=== PATIENT | female | born 1985 | race Caucasian/White ===

== ENCOUNTER 2020-02-25 20:22 | Emergency (ER) | payer OTHER, SELFPAY ==
[2020-02-25 20:23] VITALS: BP 124/78; PULSE 67; RESP 14; TEMP 36.5; O2SAT 99; BMI 19.7
--- NOTE | 2020-02-25 21:10 | HMH.EDUTC ---
[facility] [place] Clinical Impression: Exposure to COVID-19 virus Disposition: Home, Self-Care Condition on Discharge: Good Instructions: Preventing the Spread of Coronavirus Discharge Instructions, DI for COVID-19 (Suspected or Confirmed ) Additional Instructions: Drink plenty of fluids. Take tylenol for pain or fever. Return if you begin to have difficulty breathing. Follow up with your regular doctor. GO TO THE ER FOR ANY WORSENING SYMPTOMS Referrals: Ferdinand Bran MD [Primary Care Provider] - Time of Disposition: 21:11 Medical Decision Making - Medical Records Medical records reviewed: No: I reviewed the patient's medical records. - Da Inquiry Pt receiving controlled substance: No Vital Signs: 02/25/20 20:23 Temperature 97.7 F Temperature Source Oral Pulse Rate [Right] 67 Respiratory Rate 14 Blood Pressure [Right Arm] 124/78 Blood Pressure Mean [Right Arm] 93 02 Sat by Pulse Oximetry 99 Orders (Tests/Meds): ORDERS Category Date Time Status Covid-19 Nasal PCR Sendout P&C Routine Lab 02/25/20 20:26 Ordered [facility] [place] - General Stated complaint: covid test Time Seen by Provider: 02/25/20 21:10 Description of Symptoms (Recalled from Triage Doc. by RN): pt request COVID test pt has no symptoms HEENT Symptoms (Recalled from RN notes): No Resp Symptoms (Recalled from RN notes): No Skin Symptoms (Recalled from RN notes): No MS Symptoms (Recalled from RN notes): No Functional Status (Recalled from RN notes): wnl - History of Present Illness Provider Complaint: She states that she was exposed to covid-19 yesterday. She denies any symptoms so far. - Related Data Allergies Allergy/AdvReac Type Severity Reaction Status Date / Time Sulfa (Sulfonamide Allergy Intermediate I-RASH Unverified 01/31/17 14:45 Antibiotics) - Worker's Comp Is this a Worker's Comp case?: No Is this an [facility] Worker's Comp?: No Is this a [facility] Worker's Comp?: No [facility] History - Hepatitis A Screen Drug use history?: No High risk sexual behaviors?: No History of sexually transmitted infection?: No Currently employed?: No Childcare worker?: No Do you have indoor plumbing?: Yes Do you have electricity?: Yes Attestation statement:: This patient has been screened for Hepatitis A risk factors. I have reviewed the patient's past medical history: Yes ROS Obtained: Yes All systems reviewed & no additional complaints - Constitutional Constitutional: Reports system reviewed and no additional complaints, except as docu - Eyes Eyes: Reports system reviewed and no additional complaints, except as docu - ENT Ears, Nose, Mouth, and Throat: Reports system reviewed and no additional complaints, except as docu - Cardiovascular Cardiovascular: Reports system reviewed and no additional complaints, except as docu - Respiratory Respiratory: Reports system reviewed and no additional complaints, except as docu - Gastrointestinal Gastrointestingal: Reports: system reviewed and no additional complaints, except as docu Physical Exam - General General appearance: alert, in no apparent distress - Head Head exam: atraumatic, normocephalic, normal inspection - Eye Eye exam: Present: normal appearance, PERRL, EOMI - ENT ENT exam: Present: normal exam, normal oropharynx, mucous membranes moist, TM's normal bilaterally, normal external ear exam - Neck Neck exam: Present: normal inspection, full ROM, trachea midline. Absent: meningismus, lymphadenopathy - Chest Chest inspection: Present: normal inspection, symmetric chest wall rise. Absent: tenderness - Respiratory Respiratory exam: Present: normal lung sounds bilaterally. Absent: respiratory distress - Cardiovascular Cardiovascular exam: Present: regular rate, normal rhythm. Absent: JVD - Abdominal Exam Abdominal exam: Present: soft, normal bowel sounds. Absent: distention, tenderness, guarding - Extremities Exam Extremi
[2020-02-25 21:15] VITALS: BP 124/78; PULSE 67; RESP 14; TEMP 36.5; O2SAT 99
[2020-02-27 11:38] LABS: Covid-19 Nasal PCR Sendout P&C NEGATIVE
== END 2020-02-25 21:20 | disposition home or self-care (01) ==
PROVIDERS: Emergency Provider Nurse Practitioner Family; PCP Internal Medicine Adolescent Medicine
DX: Z20.822 Contact with and (suspected) exposure to COVID-19 (principal); Z88.2 Allergy status to sulfonamides
CPT/HCPCS: 99202; G0463; U0004

== ENCOUNTER → 2020-05-28 16:29 | Outpatient (CLI) | payer OTHER, SELFPAY | PROVIDERS: PCP Internal Medicine Adolescent Medicine; Visit Provider Nurse Practitioner Family | DX: Z11.1 Encounter for screening for respiratory tuberculosis (principal) ==

== ENCOUNTER → 2020-11-25 09:10 | Outpatient (CLI) | payer OTHER, SELFPAY | PROVIDERS: PCP Radiology Diagnostic Radiology; Visit Provider Nurse Practitioner | DX: Z20.822 Contact with and (suspected) exposure to COVID-19 (principal) | CPT/HCPCS: C9803; U0003; U0005 ==

== ENCOUNTER 2021-03-07 13:58 | Emergency (ER) | payer OTHER, SELFPAY ==
[2021-03-07 16:19] VITALS: BP 147/78; PULSE 82; RESP 18; TEMP 36.8; O2SAT 100; BMI 20.9
--- NOTE | 2021-03-07 16:24 | HMH.EDUTC ---
[facility] [place] Impression: Viral upper respiratory tract infection with cough Disposition: Home, Self-Care Condition on Discharge: Good Instructions: DI for Fever (Symptom) -- Adult, DI for COVID-19 (Suspected or Confirmed ) Additional Instructions: *Monitor Temp, Over the counter Motrin or Tylenol as directed/as needed Tylenol every 4 hours and Motrin every 6 hours (as long as your family doctor has told you that you can take it) for fever or pain. and straight to ER if unable to lower temp less than 101.0 after medication given *Warm salt water gargles may help to soothe the throat *Throat Lozenges *Warm fluids like tea with honey may help to soothe the throat *Sleep elevated *Humidifier/Vaporizer Follow up IMMEDIATELY for new or worsening symptoms or no Noticeable improvement over the next 48-72 hours. 911 for difficulty breathing or swallowing You were tested for today for COVID19 your test result should be back in the next 24-48 hours, you may check your results on the [facility] Portal if you have trouble logging on you may call [email or web address] support for assistance You was given a handout with instructions for Self Quarantine and Self isolation for while you wait on test results and what to do if they are positive If you are positive the Health Dept will be contacting you also Make sure to take your Vitamins Vit. C Vit D and Zinc if you can take them Prescriptions: Brompheniramine/Pseudoephed/Dm [Bromfed Dm Cough Syrup] 10 ml PO Q46H PRN #200 ml PRN Reason: Cough Transmission Status: Pending to [facility] #[id number] Referrals: Ferdinand Bran MD [Primary Care Provider] - As needed Time of Disposition: 16:30 Medical Decision Making - Da Inquiry Pt receiving controlled substance: No Da was queried for this patient: No Vital Signs: 03/07/21 16:19 Temperature 98.3 F Temperature Source Oral Pulse Rate [Left] 82 Respiratory Rate 18 Blood Pressure [Right Arm] 147/78 H Blood Pressure Mean [Right Arm] 101 02 Sat by Pulse Oximetry 100 - Lab Data Lab results reviewed: Yes: I reviewed the patient's lab results. Orders (Tests/Meds): ORDERS Category Date Time Status Covid-19 Nasal PCR ([facility]) Routine Lab 03/07/21 16:13 Re[place] [facility] [place] - General Stated complaint: covid test Time Seen by Provider: 03/07/21 16:24 Mode of Arrival: Ambulatory Source of Information: Patient Limitations: No Limitations Description of Symptoms (Recalled from Triage Doc. by RN): pt c/o WALKER, chills, body aches and nasal drainage since yesterday. HEENT Symptoms (Recalled from RN notes): Yes (WALKER and nasal drainage) Resp Symptoms (Recalled from RN notes): No Skin Symptoms (Recalled from RN notes): No MS Symptoms (Recalled from RN notes): No Functional Status (Recalled from RN notes): wnl - History of Present Illness Provider Complaint: Patient states she started feeling bad yesterday States that she has been having cough, sore throat, body aches and chills along with nasal congestion State that she wanted to get tested for flu and COVId denies known exposure - Related Data Previous Rx's Medication Instructions Recorded Brompheniramine/Pseudoephed/Dm 10 ml PO Q46H PRN #200 ml 03/07/21 [Bromfed Dm Cough Syrup] Allergies Allergy/AdvReac Type Severity Reaction Status Date / Time Sulfa (Sulfonamide Allergy Intermediate I-RASH Unverified 01/31/17 14:45 Antibiotics) - Worker's Comp Is this a Worker's Comp case?: No [facility] History - Hepatitis A Screen Drug use history?: No High risk sexual behaviors?: No History of sexually transmitted infection?: No Currently employed?: No Childcare worker?: No Do you have indoor plumbing?: Yes Do you have electricity?: Yes Attestation statement:: This patient has been screened for Hepatitis A risk factors. I have reviewed the patient's past medical history: Yes ROS Obtained: Yes All systems reviewed & no additional complaints, Yes Syst
[2021-03-07 16:35] VITALS: BP 147/78; PULSE 82; RESP 18; TEMP 36.8
[2021-03-07 16:55] LABS: UTC Influenza A Antigen Negative (Negative); UTC Influenza B Antigen Negative (Negative)
== END 2021-03-07 16:35 | disposition home or self-care (01) ==
PROVIDERS: Emergency Provider Nurse Practitioner; PCP Internal Medicine Adolescent Medicine
DX: J06.9 Acute upper respiratory infection, unspecified (principal); Z20.822 Contact with and (suspected) exposure to COVID-19
CPT/HCPCS: 87804; 99202; C9803; G0463; U0003; U0005

== ENCOUNTER 2021-05-11 19:07 | Emergency (ER) | payer OTHER, SELFPAY ==
[2021-05-11 19:58] VITALS: BP 140/70; PULSE 114; RESP 19; TEMP 37.1; O2SAT 100; BMI 19.8
[2021-05-11 20:06] LABS: UTC Influenza A Antigen Positive (Negative); UTC Influenza B Antigen Negative (Negative)
--- NOTE | 2021-05-11 20:22 | HMH.EDUTC ---
[facility] [place]: Influenza Disposition: Home, Self-Care Condition on Discharge: Good Instructions: How to Avoid a Cold or Flu, Influenza, DI for Influenza -- Adult Additional Instructions: ? Start Tamiflu today if you are going to take it. Discussed risk and possible benefits. ? Too late to start Tamiflu. Most effective when started within 48 hours of symptoms onset ? Lots of rest ? Increase Fluids water, Gatorade, powerade, pedialyte,if infant/toddler/child ? Alternate Tylenol and / or ibuprofen as discussed for fever, aches, chills Follow up IMMEDIATELY with your family doctor for new or worsening Symptoms OR no noticeable improvement over the next 48-72 hours, 911 for difficulty or breathing ? You or your child area contagious until no fever, aches, chills for 24 hours with medication for symptoms ? Help Prevent the spread of influenza: ? Wash your hands often. Use soap and water. Wash your hands after you use the bathroom, change a child's diapers, or sneeze. Wash your hands before you prepare or eat food. Use gel hand cleanser that has 60% alcohol, when soap and water are not available. Do not touch your eyes, nose, or mouth unless you have washed your hands first. ? Cover your mouth when you sneeze or cough. Cough into a tissue or the bend of your arm. If you use a tissue, throw it away immediately and wash your hands. ? Clean shared items with a germ-killing area cleaner. Clean table surfaces, doorknobs, and light switches. Do not share towels, silverware, and dishes with people who are sick. Wash bed sheets, towels, silverware, and dishes with soap and water. ? Wear a mask over your mouth and nose if you are sick. The face mask may help protect others from becoming infected with the flu. Wear the mask when in common areas of your home or if you seek care with a healthcare provider. ? Stay away from others if you are sick. Stay at home until 24 hours after your fever and symptoms are gone. Prescriptions: Oseltamivir Phosphate [Tamiflu 75mg Capsule] 75 mg PO BID #10 cap Transmission Status: Pending to [facility] #[id number] Referrals: Ferdinand Bran MD [Primary Care Provider] - As needed Forms: Work/School Release Medical Decision Making - Da Inquiry Pt receiving controlled substance: No Da was queried for this patient: No Vital Signs: 05/11/21 19:58 Temperature 98.8 F Temperature Source Oral Pulse Rate [Left] 114 H Respiratory Rate 19 Blood Pressure [Right Arm] 140/70 Blood Pressure Mean [Right Arm] 93 02 Sat by Pulse Oximetry 100 - Lab Data Lab results reviewed: Yes: I reviewed the patient's lab results. Lab Results 05/11/21 19:52: Influenza Type A Ag Positive A, Influenza Type B Ag Negative [facility] [place] - General Stated complaint: fever,chills,Body aches Time Seen by Provider: 05/11/21 20:22 Mode of Arrival: Ambulatory Source of Information: Patient Limitations: No Limitations Description of Symptoms (Recalled from Triage Doc. by RN): pt c/o a WALKER, fever, body aches and chills since this am. pts child just got over the flu. HEENT Symptoms (Recalled from RN notes): Yes Resp Symptoms (Recalled from RN notes): No Skin Symptoms (Recalled from RN notes): No MS Symptoms (Recalled from RN notes): No Functional Status (Recalled from RN notes): wnl - History of Present Illness Provider Complaint: Patient states that her child recently had flu States that this morning she started having body aches, chills, cough an nasal congestion States that as the day went on she was having fever and chills States that tonight she wasnt feeling any better so she came in - Related Data Previous Rx's Medication Instructions Recorded Brompheniramine/Pseudoephed/Dm 10 ml PO Q46H PRN #200 ml 03/07/21 [Bromfed Dm Cough Syrup] Oseltamivir Phosphate [Tamiflu 75 mg PO BID #10 cap 05/11/21 75mg Capsule] Allergies Allergy/AdvReac Type Severity Reaction Status Date / Time Sulfa (
[2021-05-11 20:30] VITALS: BP 140/70; PULSE 114; RESP 19; TEMP 37.1
== END 2021-05-11 20:33 | disposition home or self-care (01) ==
PROVIDERS: Emergency Provider Nurse Practitioner; PCP Internal Medicine Adolescent Medicine
DX: J10.1 Influenza due to other identified influenza virus with other respiratory manifestations (principal); Z88.2 Allergy status to sulfonamides
CPT/HCPCS: 87804; 99212; G0463

== ENCOUNTER 2021-09-07 08:04 | Emergency (ER) | payer OTHER, SELFPAY ==
[2021-09-07 08:11] VITALS: BP 127/77; PULSE 104; RESP 17; TEMP 37.4; O2SAT 96; BMI 20.3
--- NOTE | 2021-09-07 08:23 | HMH.EDUTC ---
[facility] [place] Clinical Impression: Viral syndrome, Exposure to COVID-19 virus Disposition: Home, Self-Care Condition on Discharge: Good Instructions: DI for COVID-19 (Suspected or Confirmed ), Preventing the Spread of Coronavirus Discharge Instructions Additional Instructions: Drink plenty of fluids. Take tylenol or ibuprofen for pain or fever. Take the medications as directed. Follow up with your regular doctor. GO TO THE ER FOR ANY WORSENING SYMPTOMS Quarantine until you know the results of your covid-19 test. Notify your school or workplace of your results and follow their instructions regarding return to work/school. Prescriptions: Ondansetron [Zofran 4mg ODT] 4 mg PO Q8HP PRN #12 tab PRN Reason: Nausea Transmission Status: Received by [facility] # Benzonatate [Benzonatate 100mg cap] 100 mg PO TIDP PRN #30 cap PRN Reason: Cough Transmission Status: Received by [facility] # Referrals: Ferdinand Bran MD [Primary Care Provider] - Forms: Work/School Release Time of Disposition: 08:42 Medical Decision Making - Medical Records Medical records reviewed: No: I reviewed the patient's medical records. - Da Inquiry Pt receiving controlled substance: No Vital Signs: 09/07/21 08:11 09/07/21 08:58 Temperature 99.3 F 99.3 F Temperature Source Oral Pulse Rate 104 H Pulse Rate [Left] 104 H Respiratory Rate 17 17 Blood Pressure 127/77 Blood Pressure [Right Arm] 127/77 Blood Pressure Mean [Right Arm] 93 02 Sat by Pulse Oximetry 96 - Lab Data Lab Results 09/07/21 08:13: Chlamy pneumoniae PCR Not detected, Adenovirus (PCR) Not detected, B. pertussis DNA (PCR) Not detected, Coronavirus OC43 (PCR) Not detected, Coronavirus HKU1 (PCR) Not detected, Coronavirus 229E (PCR) Not detected, SARS-CoV-2 (PCR) Detected A, Coronavirus NL63 (PCR) Not detected, Human Metapneumovir PCR Not detected, Influenza A (H1) PCR Not detected, Influ A (H1N1/09) PCR Not detected, Influenza A (H3) PCR Not detected, Influenza Type A (PCR) Not detected, Influenza Type B (PCR) Not detected, M. pneumoniae (PCR) Not detected, Parainfluenza 1 (PCR) Not detected, Parainfluenza 2 (PCR) Not detected, Parainfluenza 3 (PCR) Not detected, Parainfluenza 4 (PCR) Not detected, RSV (PCR) Not detected, Entero/Rhino (PCR) Not detected 09/07/21 08:33: Strep Scn Rapid Clinic Negative Orders (Tests/Meds): ORDERS Category Date Time Status Strep Screen Confirmation Stat Micro 09/07/21 08:33 Received [facility] [place] HPI - General Stated complaint: congestion/runny nose, fever/chills, body aches Time Seen by Provider: 09/07/21 08:23 Description of Symptoms (Recalled from Triage Doc. by RN): patient comes in for flu like symptoms. headache, chillls, fever, body aches that began last night HEENT Symptoms (Recalled from RN notes): Yes Resp Symptoms (Recalled from RN notes): Yes Skin Symptoms (Recalled from RN notes): No MS Symptoms (Recalled from RN notes): No Functional Status (Recalled from RN notes): n/a - History of Present Illness Provider Complaint: She states that she has had sore throat, chills, body aches, sinus congestion, and a dry nonproductive cough for the past day. - Related Data Previous Rx's Medication Instructions Recorded Brompheniramine/Pseudoephed/Dm 10 ml PO Q46H PRN #200 ml 03/07/21 [Bromfed Dm Cough Syrup] Oseltamivir Phosphate [Tamiflu 75 mg PO BID #10 cap 05/11/21 75mg Capsule] Benzonatate [Benzonatate 100mg 100 mg PO TIDP PRN #30 cap 09/07/21 cap] Ondansetron [Zofran 4mg ODT] 4 mg PO Q8HP PRN #12 tab 09/07/21 Allergies Allergy/AdvReac Type Severity Reaction Status Date / Time Sulfa (Sulfonamide Allergy Intermediate I-RASH Verified 09/07/21 08:18 Antibiotics) - Worker's Comp Is this a Worker's Comp case?: No [facility] History - Hepatitis A Screen Attestation statement:: This patient has been screened for Hepat
[2021-09-07 08:39] LABS: UTC Strep Screen (Rapid) Negative (Negative)
[2021-09-07 08:49] LABS: Adenovirus,PCR Not Detected (NotDetected); Bordetella Pertussis Not Detected (NotDetected); Chlamydophila Pneumoniae, PCR Not Detected (NotDetected); Coronavirus 229E Not Detected (NotDetected); Coronavirus NL63 Not Detected (NotDetected); Coronavirus OC43 Not Detected (NotDetected); Coronovirus HKU1,PCR Not Detected (NotDetected); Human Metapneumovirus Not Detected (NotDetected); Influenza A, PCR Not Detected (NotDetected); Influenza AH1, 2009 Not Detected (NotDetected); Influenza AH1, PCR Not Detected (NotDetected); Influenza AH3,PCR Not Detected (NotDetected); Influenza B, PCR Not Detected (NotDetected); Mycoplasma Pneumoniae, PCR Not Detected (NotDetected); Parainfluenza 1, PCR Not Detected (NotDetected); Parainfluenza 2, PCR Not Detected (NotDetected); Parainfluenza 3, PCR Not Detected (NotDetected); Parainfluenza 4, PCR Not Detected (NotDetected); Respiratory Syncytial Virus Not Detected (NotDetected); Rhinovirus/Enterovirus Not Detected (NotDetected)
[2021-09-07 08:58] VITALS: BP 127/77; PULSE 104; RESP 17; TEMP 37.4
[2021-09-07 11:05] LABS: Coronavirus 19, PCR Detected (NotDetected)
== END 2021-09-07 08:59 | disposition home or self-care (01) ==
PROVIDERS: Emergency Provider Nurse Practitioner Family; PCP Internal Medicine Adolescent Medicine
DX: U07.1 COVID-19 (principal); B34.9 Viral infection, unspecified; J02.9 Acute pharyngitis, unspecified; H92.09 Otalgia, unspecified ear; M79.10 Myalgia, unspecified site; Z88.2 Allergy status to sulfonamides
CPT/HCPCS: 87581; 87632; 87798; 87880; 99213; C9803; G0463; U0003; U0005

== ENCOUNTER 2021-12-19 14:12 | Emergency (ER) | payer OTHER, SELFPAY ==
[2021-12-19 16:24] VITALS: BP 114/75; PULSE 63; RESP 18; TEMP 36.8; O2SAT 100; BMI 20.9
--- NOTE | 2021-12-19 16:24 | EXP.UTC ---
Discharge Plan Disposition Patient Disposition: Home, Self-Care Condition: Good Prescriptions Prescriptions: New ofloxacin 0.3 % drops See Rx Instructions ophthalmic (eye) .COMPLEX Qty: 5 0RF Rx Instructions: put 1 drp into affected eye(s) every 4 h x 2 days, then 1 drp 4 times/day days 3-7 No Action oseltamivir 75 MG capsule 75 mg PO BID Qty: 10 0RF benzonatate 100 MG capsule 100 mg PO TIDP PRN (Reason: Cough) Qty: 30 0RF ondansetron 4 MG tablet,disintegrating 4 mg PO Q8HP PRN (Reason: Nausea) Qty: 12 0RF frbgajvagxyjxsf-hxhrzvzrz-KL 118 ML syrup 10 ml PO Q46H PRN (Reason: Cough) Qty: 200 0RF Referrals Follow up/Referrals: Ferdinand Bran MD [Primary Care Provider] - See instructions Activity Restrictions/Add. Instructions Additional Instructions/Restrictions: Use the eye drops as directed. Strict hand washing in the house hold, because conjunctivitis is very contagious. Follow up with your regular doctor. GO TO THE ER FOR ANY WORSENING SYMPTOMS OR CONCERNS Clinical Impressions Clinical Impression: Conjunctivitis Instructions Patient Instructions: How to Instill Eye Drops, Conjunctivitis, DI for Conjunctivitis Discharge ED Provider: Jorge Villarreal [facility] General Stated complaint: Redness around left eye Time Seen by Provider: 12/19/21 16:24 History of Present Illness Provider Complaint: She c/o left eye irritation and matting with yellowish drainage for the past 2 days. Related Data Previous Rx's Medication Instructions Recorded iotndubzcvmurgp-tdctgucglajotrl-UJ 10 ml PO Q46H PRN Cough #200 mL 03/07/21 2 mg-30 mg-10 mg/5 mL oral syrup oseltamivir 75 mg capsule 75 mg PO BID #10 caps 05/11/21 benzonatate 100 mg capsule 100 mg PO TIDP PRN Cough #30 caps 09/07/21 ondansetron 4 mg disintegrating 4 mg PO Q8HP PRN Nausea #12 tabs 09/07/21 tablet ofloxacin 0.3 % eye drops See Rx Instructions ophthalmic 12/19/21 (eye) .COMPLEX #5 mL Allergies Allergy/AdvReac Type Severity Reaction Status Date / Time Sulfa (Sulfonamide Allergy Intermediate I-RASH Verified 12/19/21 16:26 Antibiotics) [facility] Social History Smoking Status: Never smoker alcohol intake: never current occupational status: employed Travel in the last 8 weeks: None ROS Obtained: Yes All systems reviewed & no additional complaints except as documented Constitutional Constitutional: Denies chills and Denies fever(s) Eyes Eyes: Reports eye discharge ENT Ears, Nose, Mouth, and Throat: Denies dizziness, Denies otalgia and Denies sore throat Cardiovascular Cardiovascular: Denies chest pain Respiratory Respiratory: Denies shortness of breath, Denies chest congestion, Denies cough, Denies stridor and Denies wheezing Gastrointestinal Gastrointestingal: Denies nausea or vomiting Musculoskeletal Musculoskeletal: Reports system reviewed and no additional complaints, except as documented and Denies arthralgias Integumentary/Breasts Skin/Breast: Denies rash Neurologic Neurologic: Denies dizziness and Denies paresthesias Allergic/Immunologic Allergic/Immunologic: Denies wheezing Physical Exam General General appearance: alert and in no apparent distress Head Head exam: atraumatic, normocephalic and normal inspection Eye Eye exam: Present PERRL, EOMI, conjunctival redness, conjunctival injection and discharge ENT ENT exam: Present normal exam, normal oropharynx, mucous membranes moist, TM's normal bilaterally and normal external ear exam Neck Neck exam: Present normal inspection, full ROM and trachea midline; Absent meningismus or lymphadenopathy Chest Chest inspection: Present normal inspection and symmetric chest wall rise; Absent tenderness Respiratory Respiratory exam: Present normal lung sounds bilaterally; Absent respiratory distress Cardiovascular Cardiovascular exam: Present regular rate and normal rhythm; Absent JVD
[2021-12-19 17:08] VITALS: BP 114/75; PULSE 63; RESP 18; TEMP 36.8
== END 2021-12-19 17:08 | disposition home or self-care (01) ==
PROVIDERS: Emergency Provider Nurse Practitioner Family; PCP Internal Medicine Adolescent Medicine
DX: H10.9 Unspecified conjunctivitis (principal); R11.0 Nausea; R05.9 Cough, unspecified; Z79.899 Other long term (current) drug therapy; Z88.2 Allergy status to sulfonamides
CPT/HCPCS: 99212; G0463

== ENCOUNTER 2022-02-02 17:23 | Emergency (ER) | payer OTHER, SELFPAY ==
[2022-02-02 18:53] VITALS: BP 137/79; PULSE 67; RESP 18; TEMP 36.9; O2SAT 100; BMI 20.9
--- NOTE | 2022-02-02 18:54 | EXP.UTC ---
Discharge Plan Disposition Patient Disposition: Home, Self-Care Condition: Good Prescriptions Prescriptions: New benzonatate [benzonatate] 100 mg capsule 100 mg PO TIDP PRN (Reason: Cough) Qty: 30 0RF promethazine-DM 6.25-15 mg/5 mL Syrup 5 ml PO Q6H PRN (Reason: Cough) Qty: 240 0RF amoxicillin-pot clavulanate 500-125 mg tablet 1 tab PO TID Qty: 20 0RF methylprednisolone 4 mg Tablets,Dose Pack 4 mg PO DIRECTED Qty: 21 0RF No Action oseltamivir 75 MG capsule 75 mg PO BID Qty: 10 0RF benzonatate 100 MG capsule 100 mg PO TIDP PRN (Reason: Cough) Qty: 30 0RF ondansetron 4 MG tablet,disintegrating 4 mg PO Q8HP PRN (Reason: Nausea) Qty: 12 0RF ofloxacin 0.3 % drops See Rx Instructions ophthalmic (eye) .COMPLEX Qty: 5 0RF Rx Instructions: put 1 drp into affected eye(s) every 4 h x 2 days, then 1 drp 4 times/day days 3-7 dwbukflamndyzuh-ixscpvvio-YT 118 ML syrup 10 ml PO Q46H PRN (Reason: Cough) Qty: 200 0RF Referrals Follow up/Referrals: Ferdinand Bran MD [Primary Care Provider] - See instructions Activity Restrictions/Add. Instructions Additional Instructions/Restrictions: Drink plenty of fluids. Take tylenol or ibuprofen for pain or fever. Take the medications as directed. Follow up with your regular doctor. GO TO THE ER FOR ANY WORSENING SYMPTOMS Clinical Impressions Clinical Impression: Acute bronchiolitis, Pleurisy Stand Alone Forms Stand Alone Forms: Work/School Release Instructions Patient Instructions: DI for Acute Bronchitis, DI for Pleurisy, DI for Rib Contusion Discharge ED Provider: Jorge Villarreal [facility] General Stated complaint: COUGH, CONGESTION Time Seen by Provider: 02/02/22 18:54 History of Present Illness Provider Complaint: She states that for the past 3 weeks she has had a cough, chest congestion and sinus congestion. She denies any fever/chills/body ache. She states that she has coughed so much that she is now having pain in her left lower ribs when she coughs. She denies shortness of breath. Related Data Previous Rx's Medication Instructions Recorded pqhnlxevzkbpyfd-oqllsfkuqssbkcz-SE 10 ml PO Q46H PRN Cough #200 mL 03/07/21 2 mg-30 mg-10 mg/5 mL oral syrup oseltamivir 75 mg capsule 75 mg PO BID #10 caps 05/11/21 benzonatate 100 mg capsule 100 mg PO TIDP PRN Cough #30 caps 09/07/21 ondansetron 4 mg disintegrating 4 mg PO Q8HP PRN Nausea #12 tabs 09/07/21 tablet ofloxacin 0.3 % eye drops See Rx Instructions ophthalmic 12/19/21 (eye) .COMPLEX #5 mL amoxicillin 500 mg-potassium 1 tab PO TID #20 tabs 02/02/22 clavulanate 125 mg tablet benzonatate 100 mg capsule 100 mg PO TIDP PRN Cough #30 caps 02/02/22 methylprednisolone 4 mg tablets in 4 mg PO DIRECTED #21 tabs 02/02/22 a dose pack promethazine-DM 6.25 mg-15 mg/5 mL 5 ml PO Q6H PRN Cough #240 mL 02/02/22 oral syrup Allergies Allergy/AdvReac Type Severity Reaction Status Date / Time Sulfa (Sulfonamide Allergy Intermediate I-RASH Verified 02/02/22 18:55 Antibiotics) [facility] Disclaimer: The information contained in this section may have been updated after the patient was seen, as this information can be updated by other users. Social History (Updated 12/19/21 @ 22:06 by Jorge Villarreal APRN) Smoking Status: Never smoker alcohol intake: never current occupational status: employed Travel in the last 8 weeks: None ROS Obtained: Yes All systems reviewed & no additional complaints except as documented Constitutional Constitutional: Denies chills and Denies fever(s) Eyes Eyes: Denies eye discharge ENT Ears, Nose, Mouth, and Throat: Reports as per HPI, Denies dizziness, Denies otalgia and Denies sore throat Cardiovascular Cardiovascular: Reports as per HPI and Denies chest pain Respiratory Respiratory: Denies shortness of breath, Reports chest congestion, Denies cough, Denies stridor and Denies wheezing Gastrointestinal
[2022-02-02 19:52] VITALS: BP 137/79; PULSE 67; RESP 18; TEMP 36.9
== END 2022-02-02 20:00 | disposition home or self-care (01) ==
PROVIDERS: Emergency Provider Nurse Practitioner Family; PCP Internal Medicine Adolescent Medicine
DX: J21.9 Acute bronchiolitis, unspecified (principal)
CPT/HCPCS: 99212; G0463

== ENCOUNTER → 2022-02-09 20:15 | Outpatient (CLI) | payer OTHER, SELFPAY ==
--- NOTE | 2022-02-09 20:52 | XR_ITS ---
PROCEDURE INFORMATION: Exam: XR Ribs Exam date and time: 02/09/2022 8:49 PM Age: 36 years old Clinical indication: Pain; Other: Left side; Additional info: Rib pain TECHNIQUE: Imaging protocol: Radiologic exam of the of the ribs. Views: 3 views. Bilateral ribs. COMPARISON: CR XR CHEST 2V 02/09/2022 8:48 PM FINDINGS: Bones/joints: No acute displaced fracture or malalignment. Soft tissues: Unremarkable. IMPRESSION: No evidence of acute displaced rib fracture.
--- NOTE | 2022-02-09 20:52 | XR_ITS ---
PROCEDURE INFORMATION: Exam: XR Chest Exam date and time: 02/09/2022 8:48 PM Age: 36 years old Clinical indication: Pain; Left-sided; Additional info: Rib pain TECHNIQUE: Imaging protocol: Radiologic exam of the chest. Views: 2 views. COMPARISON: No relevant prior studies available. FINDINGS: Lungs: No acute airspace consolidation. No appreciable pulmonary edema. Pleural spaces: No pleural effusion. No pneumothorax. Heart/Mediastinum: Cardiomediastinal silouhette is within normal limits. Bones/joints: No evidence of acute osseous abnormality. IMPRESSION: No acute findings.
== END ==
PROVIDERS: PCP Internal Medicine Adolescent Medicine; Visit Provider Nurse Practitioner Family
DX: R07.81 Pleurodynia (principal)
CPT/HCPCS: 71046; 71100

== ENCOUNTER 2022-08-30 18:39 | Emergency (ER) | payer OTHER, SELFPAY ==
[2022-08-30 18:40] VITALS: BP 146/89; PULSE 67; RESP 22; TEMP 36.8; O2SAT 100; BMI 20.9
--- NOTE | 2022-08-30 18:42 | XR_ITS ---
PROCEDURE INFORMATION: Exam: XR Left Ankle Exam date and time: 08/30/2022 6:39 PM Age: 37 years old Clinical indication: Pain; Ankle; Left; Additional info: Pain. [place] popping when walking TECHNIQUE: Imaging protocol: Radiologic exam of the left ankle. Views: 3 or more views. COMPARISON: No relevant prior studies available. FINDINGS: Bones/joints: Normal. Soft tissues: Normal. IMPRESSION: No acute findings.
--- NOTE | 2022-08-30 18:42 | XR_ITS ---
PROCEDURE INFORMATION: Exam: XR Left Foot Exam date and time: 08/30/2022 6:41 PM Age: 37 years old Clinical indication: Pain; Foot; Left TECHNIQUE: Imaging protocol: Radiologic exam of the left foot. Views: 3 or more views. COMPARISON: CR Ankle L 08/30/2022 6:39 PM FINDINGS: Bones/joints: Normal. Soft tissues: Normal. IMPRESSION: No acute findings.
--- NOTE | 2022-08-30 19:00 | EXP.UTC ---
Discharge Plan Disposition Patient Disposition: Home, Self-Care Condition: Good Referrals Follow up/Referrals: Ferdinand Bran MD [Primary Care Provider] - See instructions Activity Restrictions/Add. Instructions Additional Instructions/Restrictions: *weight bearing as tolerated *RICE, Rest the extremity, Ice 15-20 minutes 3-4 times daily, Compress- wear the dg wrap as discussed as much as possible to help reduce swelling and pain, Elevate the extremity when at rest *Dg wrap is for support and help control swelling, use it except in the shower. Be sure that is not to tight but not to loose either *Elevate when resting? *Ibuprofen 600-800mg every 6-8 hours as needed for pain an inflammation. If need something more can take Tylenol in between doses of Ibuprofen to help Immediately follow up with your family doctor for new or worsening of symptoms, or no noticeable improvement over the next 3-5 days Clinical Impressions Clinical Impression: Ankle pain Qualifiers: Chronicity: unspecified Laterality: left Qualified Code(s): M25.572 - Pain in left ankle and joints of left foot Instructions Patient Instructions: How To Perform RICE (Rest, Ice, Compress, Elevate), How to Apply an Dg Wrap Discharge ED Provider: Sophie Segal [facility] General Stated complaint: LT ankle pain Mode of Arrival: Ambulatory Source of Information: Patient Limitations: No Limitations Time Seen by Provider: 08/30/22 19:00 Description of Symptoms (Recalled from Triage Doc. by RN): PATIENT C/O POPPING TO LEFT ANKLE THAT STARTED YESTERDAY. NO KNOWN INJURY HEENT Symptoms (Recalled from RN notes): No Resp Symptoms (Recalled from RN notes): No Skin Symptoms (Recalled from RN notes): No MS Symptoms (Recalled from RN notes): Yes Functional Status (Recalled from RN notes): WNL History of Present Illness Provider Complaint: Patient states that she was walking yesterday and her left ankle started popping States that when it does it it hurts States that she hasnt fallen or twisted it or anything but certain ways she steps it will pop and hurt so today when it was still doing it she came in Denies known injury Related Data Allergies Allergy/AdvReac Type Severity Reaction Status Date / Time Sulfa (Sulfonamide Allergy Intermediate I-RASH Verified 02/09/22 15:54 Antibiotics) Worker's Comp Is this a Worker's Comp case?: No [facility] Disclaimer: The information contained in this section may have been updated after the patient was seen, as this information can be updated by other users. Social History (Updated 02/09/22 @ 15:56 by Dulce Lira MA) Smoking Status: Never smoker alcohol intake: never substance use type: denies use current occupational status: employed Travel in the last 8 weeks: None ROS Obtained: Yes All systems reviewed & no additional complaints except as documented and Yes Systems reviewed as appropriate & no additional complaints except as documented Constitutional Constitutional: Reports system reviewed and no additional complaints, except as documented and Reports as per HPI Cardiovascular Cardiovascular: Reports system reviewed and no additional complaints, except as documented and Reports as per HPI Respiratory Respiratory: Reports system reviewed and no additional complaints, except as documented and Reports as per HPI Gastrointestinal Gastrointestingal: Reports system reviewed and no additional complaints, except as documented and as per HPI Musculoskeletal Musculoskeletal: Reports system reviewed and no additional complaints, except as documented and Reports as per HPI Comments: Popping and pain in left ankle with walking denies known injury Physical Exam General General appearance: alert and in no apparent distress Respiratory Respiratory exam: Present normal lung sounds bilaterally; Absent respiratory distress or wheezes Cardiovascular Cardiovascular exam: Present regular rate, normal rhythm a
[2022-08-30 19:12] VITALS: BP 146/89; PULSE 67; RESP 22; TEMP 36.8; O2SAT 100
== END 2022-08-30 19:14 | disposition home or self-care (01) ==
PROVIDERS: Emergency Provider Nurse Practitioner; PCP Internal Medicine Adolescent Medicine
DX: M25.572 Pain in left ankle and joints of left foot (principal)
CPT/HCPCS: 73610; 73630; 99212; 99214; G0463

== ENCOUNTER 2022-09-29 18:39 | Emergency (ER) | payer OTHER, SELFPAY ==
[2022-09-29 18:40] VITALS: BP 123/61; PULSE 88; RESP 16; TEMP 36.9; O2SAT 100; BMI 20.6
--- NOTE | 2022-09-29 19:01 | EXP.UTC ---
Discharge Plan Disposition Patient Disposition: Home, Self-Care Condition: Good Prescriptions Prescriptions: New amoxicillin [amoxicillin] 875 mg tablet 875 mg PO Q12H Qty: 20 0RF benzonatate [benzonatate] 100 mg capsule 100 mg PO TIDP PRN (Reason: Cough) Qty: 30 0RF methylprednisolone 4 mg Tablets,Dose Pack 4 mg PO DIRECTED Qty: 21 0RF Referrals Follow up/Referrals: Ferdinand Bran MD [Primary Care Provider] - See instructions Activity Restrictions/Add. Instructions Additional Instructions/Restrictions: Drink plenty of fluids. Take tylenol or ibuprofen for pain or fever. Take the medications as directed. Follow up with your regular doctor. GO TO THE ER FOR ANY WORSENING SYMPTOMS Clinical Impressions Clinical Impression: Sinusitis Stand Alone Forms Stand Alone Forms: Work/School Release Instructions Patient Instructions: Sinusitis, DI for Sinusitis Discharge ED Provider: Jorge Villarreal [facility] [place] HPI General Stated complaint: Sore throat; fever; cough Time Seen by Provider: 09/29/22 19:00 History of Present Illness Provider Complaint: She c/o sinus congestion, ear pain and a cough for the past 3 days. She has been exposed to covid-19. Related Data Previous Rx's Medication Instructions Recorded amoxicillin 875 mg tablet 875 mg PO Q12H #20 tabs 09/29/22 benzonatate 100 mg capsule 100 mg PO TIDP PRN Cough #30 caps 09/29/22 methylprednisolone 4 mg tablets in 4 mg PO DIRECTED #21 tabs 09/29/22 a dose pack Allergies Allergy/AdvReac Type Severity Reaction Status Date / Time Sulfa (Sulfonamide Allergy Intermediate I-RASH Verified 02/09/22 15:54 Antibiotics) [facility] Disclaimer: The information contained in this section may have been updated after the patient was seen, as this information can be updated by other users. Social History (Updated 02/09/22 @ 15:56 by Dulce Lira MA) Smoking Status: Never smoker alcohol intake: never substance use type: denies use current occupational status: employed Travel in the last 8 weeks: None ROS Obtained: Yes All systems reviewed & no additional complaints except as documented Constitutional Constitutional: Reports poor appetite Eyes Eyes: Reports system reviewed and no additional complaints, except as documented ENT Ears, Nose, Mouth, and Throat: Reports as per HPI Cardiovascular Cardiovascular: Reports system reviewed and no additional complaints, except as documented and Denies chest pain Respiratory Respiratory: Denies shortness of breath, Denies chest congestion, Reports cough, Denies stridor and Denies wheezing Gastrointestinal Gastrointestingal: Reports system reviewed and no additional complaints, except as documented; Denies abdominal pain, diarrhea or vomiting Musculoskeletal Musculoskeletal: Reports system reviewed and no additional complaints, except as documented and Denies arthralgias Integumentary/Breasts Skin/Breast: Reports system reviewed and no additional complaints, except as documented and Denies rash Neurologic Neurologic: Denies paresthesias Allergic/Immunologic Allergic/Immunologic: Denies wheezing Physical Exam General General appearance: alert and in no apparent distress Eye Eye exam: Present normal appearance, PERRL and EOMI ENT ENT exam: Present mucous membranes moist and normal external ear exam Expanded ENT Exam External ear exam: Present normal external inspection TM/Canal exam: Bilateral TM: erythema and bulging Nose exam: Absent sinus tenderness Nasal speculum exam: Bilateral: normal Mouth exam: Present normal external inspection; Absent drooling Teeth exam: Present normal inspection Throat exam: Present tonsillar erythema and tonsillomegaly Neck Neck exam: Present normal inspection, full ROM and trachea midline; Absent tenderness, lymphadenopathy or thyromegaly Chest Chest inspection: Present normal inspection and symmetric chest wall rise; Absent tenderness or
[2022-09-29 19:11] LABS: UTC Strep Screen (Rapid) Negative (Negative)
[2022-09-29 20:07] VITALS: BP 123/61; PULSE 88; RESP 16; TEMP 36.9; O2SAT 100
== END 2022-09-29 20:08 | disposition home or self-care (01) ==
PROVIDERS: Emergency Provider Nurse Practitioner Family; PCP Internal Medicine Adolescent Medicine
DX: U07.1 COVID-19 (principal); J01.90 Acute sinusitis, unspecified
CPT/HCPCS: 87880; 99212; 99214; G0463

== ENCOUNTER 2023-06-10 21:59 | Emergency (ER) | payer OTHER, SELFPAY ==
[2023-06-10 22:00] VITALS: BP 123/92; PULSE 72; RESP 16; TEMP 36.9; O2SAT 98; BMI 20.5
[2023-06-10] MEDS: TET/DIPHTH/PERT-ADULT 0.5ML SYRINGE 0.5 ML IM (22:29)
[2023-06-10 22:49] VITALS: BP 124/79; PULSE 69; RESP 16; TEMP 36.9; O2SAT 100
--- NOTE | 2023-06-10 23:29 | HMH.EDGENADL ---
Discharge Plan Disposition Patient Disposition: Home, Self-Care Condition: Good Prescriptions Prescriptions: No Action amoxicillin [amoxicillin] 875 mg tablet 875 mg PO Q12H Qty: 20 0RF benzonatate [benzonatate] 100 mg capsule 100 mg PO TIDP PRN (Reason: Cough) Qty: 30 0RF methylprednisolone 4 mg Tablets,Dose Pack 4 mg PO DIRECTED Qty: 21 0RF Referrals Follow up/Referrals: Ferdinand Bran MD [Primary Care Provider] - See instructions Activity Restrictions/Add. Instructions Additional Instructions/Restrictions: You were evaluated in the emergency department today. Keep your wound clean and dry. Allow the glue to fall off on its own. Follow-up with your primary care provider for reassessment. Return to the emergency department for new or worsening symptoms. Clinical Impressions Clinical Impression: Chin laceration Instructions Patient Instructions: DI for Laceration Repair Discharge ED Provider: Alka Lawler General Adult HPI General Chief complaint: Wound/Laceration Stated complaint: AO 06/10/23 2020 laceration to chin Time Seen by Provider: 06/10/23 22:08 Mode of Arrival: Ambulatory Source of Information: Patient Limitations: No Limitations Description of Symptoms (Recalled from ER Triage Doc. by RN): Pt was at the park with [place] and fell on her chin. Small lac that is no longer bleeding observed by this RN. Pt is A&O*4 and has no pain at this time. History of Present Illness HPI narrative: This patient is a 38-year-old female presenting to the emergency department for evaluation with concern for chin laceration. She was running with her children at the park when she tripped, hitting her chin on the slide. She suffered a wound. She did not lose consciousness. No trismus or jaw malocclusion. No dental pain. No other concerns noted at this time. She is not sure the last tetanus shot was. Related Data Previous Rx's Medication Instructions Recorded amoxicillin 875 mg tablet 875 mg PO Q12H #20 tabs 09/29/22 benzonatate 100 mg capsule 100 mg PO TIDP PRN Cough #30 caps 09/29/22 methylprednisolone 4 mg tablets in 4 mg PO DIRECTED #21 tabs 09/29/22 a dose pack Allergies Allergy/AdvReac Type Severity Reaction Status Date / Time Sulfa (Sulfonamide Allergy Intermediate I-RASH Verified 02/09/22 15:54 Antibiotics) [facility] Disclaimer: The information contained in this section may have been updated after the patient was seen, as this information can be updated by other users. Social History Smoking Status: Former smoker alcohol intake: never substance use type: denies use current occupational status: employed Travel in the last 8 weeks: None ROS Obtained: Yes All systems reviewed & no additional complaints except as documented Physical Exam General General appearance: alert and in no apparent distress Head Head exam: atraumatic, normocephalic and other (1 cm linear superficial chin laceration) Eye Eye exam: Present normal appearance, PERRL and EOMI ENT ENT exam: Present normal exam, normal oropharynx, mucous membranes moist and normal external ear exam Neck Neck exam: Present normal inspection, full ROM and trachea midline; Absent tenderness Chest Chest inspection: Present normal inspection and symmetric chest wall rise; Absent tenderness Respiratory Respiratory exam: Present normal lung sounds bilaterally; Absent respiratory distress, wheezes, stridor or accessory muscle use Cardiovascular Cardiovascular exam: Present regular rate and normal rhythm Abdominal Exam Abdominal exam: Present soft; Absent distention, tenderness or guarding Extremities Exam Extremities exam: Present normal inspection, full ROM and normal capillary refill; Absent tenderness or edema Back Exam Back exam: Present normal inspection and full ROM; Absent tenderness Neurological Exam Neurological exam: Present alert, oriented X3, CN II-XII intact and normal gait; Absent motor sensory deficit Psychiatric Psychiatric exam: Present normal affect and normal mood Skin Skin exam: Present warm and dry Medical Decision Making Medical Records Medical records reviewed: Yes I reviewed the patient's medical records. Da Inquiry Pt receiving controlled substance: No Vital Signs: 06/10/23 22:00 06/10/23 22:49 Temperature 98.4 F 98.4 F Temperature Source Oral Oral Pulse Rate 69 Pulse Rate [Left] 72 Respiratory Rate 16 16 Blood Pressure 124/79 Blood Pressure [Right Arm] 123/92 H Blood Pressure Mean [Right Arm] 102 02 Sat by Pulse Oximetry 98 Oxygen Delivery Method Room Air Room Air Lab Data Lab results reviewed: Yes I reviewed the patient's lab results. Orders (Tests/Meds): ED MEDICATIONS Discontinued Medications Generic Name Dose Route Start Last Admin Trade Name Freq PRN Reason Stop Dose Admin Tetanus/Reduced Diphtheria/Acell Pertussis 0.5 ml 06/10/23 22:20 06/10/23 22:29 Tet/Diphth/Pert-Adult 0.5ml Syringe IM 06/10/23 22:21 0.5 ml .ONCE ONE Administration Medical Decision Narrative: In summary, this patient is a 38-year-old female presenting to the Emergency Department for evaluation of laceration to the chin. Patient has no focal findings concerning for significant traumatic injury, such as trismus, jaw malocclusion, dental injury, or other concern. She has a small superficial laceration. After risk versus benefit were explained, patient consented to repair with Dermabond. This was tolerated well without difficulty. Tdap booster was administered. At this time, I feel the patient is appropriate for discharge home. Strict return precautions were given, and she was discharged after all questions were answered. Procedures Risk/Benefits of Procedure(s) Were Explained: Yes Laceration Laceration 1: Site: other (chin) Size (cm): 1 Description: linear Depth: simple, single layer Pre-repair: wound explored, irrigated extensively and deep structures intact Skin layer closed with: Dermabond Critical Care Critical Care Time Critical Care Time: No
== END 2023-06-10 22:53 | disposition home or self-care (01) ==
PROVIDERS: Emergency Provider Emergency Medicine; PCP Internal Medicine Adolescent Medicine
DX: S01.81XA Laceration without foreign body of other part of head, initial encounter (principal); W01.198A Fall on same level from slipping, tripping and stumbling with subsequent striking against other object, initial encounter; Z23 Encounter for immunization
CPT/HCPCS: 12011; 90471; 90715; 99283

== ENCOUNTER 2023-11-15 15:59 | Emergency (ER) | payer OTHER, SELFPAY ==
[2023-11-15] VITALS (7 sets, daily range): BP systolic 135–157; BP diastolic 80–87; PULSE 55–80; RESP 16–18; TEMP 36.6–36.8; O2SAT 99–100; BMI 20.1
--- NOTE | 2023-11-15 16:12 | ED_ITS ---
Discharge Plan Disposition Patient Disposition: Home, Self-Care Condition: Good Prescriptions Prescriptions: No Action amoxicillin [amoxicillin] 875 mg tablet 875 mg PO Q12H Qty: 20 0RF benzonatate [benzonatate] 100 mg capsule 100 mg PO TIDP PRN (Reason: Cough) Qty: 30 0RF methylprednisolone 4 mg Tablets,Dose Pack 4 mg PO DIRECTED Qty: 21 0RF Referrals Follow up/Referrals: Ferdinand Bran MD [Primary Care Provider] - See instructions Activity Restrictions/Add. Instructions Additional Instructions/Restrictions: Please follow-up with your AGRICULTURE WORKER within 48 hours for recheck for your ovarian cyst. Return to ER for any worsening signs or symptoms. Additionally follow-up with your PCP for the right renal cyst. Clinical Impressions Clinical Impression: Cyst of right kidney Stand Alone Forms Stand Alone Forms: Work/School Release Instructions Patient Instructions: DI for Ovarian Cyst Print Language Print Language: Syriac Discharge ED Provider: Víctor Hernandez General Adult HPI <FREDERICK Alston - Last Filed: 11/15/23 19:59> General Chief complaint: Abdominal Pain Stated complaint: lower RT abd pain Time Seen by Provider: 11/15/23 16:12 History of Present Illness HPI narrative: Patient presents for evaluation of right lower quadrant abdominal pain patient gives a history of 4 days of intermittent right lower quadrant abdominal pain. However since 330 this afternoon it has been constant. She rates the pain as a 10 out of 10. She has a history of bilateral tubal ligation and ovarian cyst on the right side remotely but has not had a cholecystectomy or appendectomy and retains all of her reproductive organs. She reports that she has not eaten or drinking since it happened but that would be normal. She has not been intolerant of oral intake up to now. Patient reports having normal bowel movements but has not had 1 today. Patient also reports passing flatus but cannot recall if she is done that today. She denies any fever chills hemoptysis hematochezia melena nausea vomit diarrhea. Related Data Previous Rx's ?Medication ?Instructions ?Recorded amoxicillin 875 mg tablet 875 mg PO Q12H #20 tabs 09/29/22 benzonatate 100 mg capsule 100 mg PO TIDP PRN Cough #30 caps 09/29/22 methylprednisolone 4 mg tablets in 4 mg PO DIRECTED #21 tabs 09/29/22 a dose pack Allergies Allergy/AdvReac Type Severity Reaction Status Date / Time Sulfa (Sulfonamide Allergy Intermediate I-RASH Verified 02/09/22 15:54 Antibiotics) [facility] <FREDERICK Alston - Last Filed: 11/15/23 19:59> [facility] Disclaimer: The information contained in this section may have been updated after the patient was seen, as this information can be updated by other users. Social History Smoking Status: Never smoker alcohol intake: never substance use type: denies use current occupational status: employed Travel in the last 8 weeks: None Other Medical History Have you received the Flu Vaccine for this season: No Have you received the Pneumonia Vaccine: No <FREDERICK Alston - Last Filed: 11/15/23 19:59> ROS Obtained: Yes Systems reviewed as appropriate & no additional complaints except as documented Physical Exam <FREDERICK Alston - Last Filed: 11/15/23 19:59> General General appearance: alert and in no apparent distress Respiratory Respiratory exam: Present normal lung sounds bilaterally Cardiovascular Cardiovascular exam: Present regular rate Neurological Exam Neurological exam: Present alert and oriented X3 Medical Decision Making <FREDERICK Alston - Last Filed: 11/15/23 19:59> Medical Records Medical records reviewed: Yes I reviewed the patient's medical records. Screening: Per USPSTF and CDC recommendations, given the prevalence of disease in our region, it is our hospital?s policy to screen for HIV and viral Hepatitis for all patients aged 18 and over and those with ongoing risk factors. Da Inquiry Pt receiving controlled substance: No Vital Signs: 11/15/23 16:00 11/15/23 16:31 11/15/23 17:00 Temperature 98.3 F Temperature Source Oral Pulse Rate 80 63 Pulse Rate [Radial] 66 Respiratory Rate 16 16 Blood Pressure 138/80 139/87 Blood Pressure [Right Arm] 135/83 Blood Pressure Mean 96 Blood Pressure Mean [Right Arm] 100 Blood Pressure Source Blood Pressure Source [Right Arm] Automatic Cuff Blood Pressure Position Blood Pressure Position [Right Arm] Sitting 02 Sat by Pulse Oximetry 99 99 100 Oxygen Delivery Method Room Air Room Air 11/15/23 17:30 11/15/23 18:30 11/15/23 20:00 Temperature Temperature Source Pulse Rate 60 55 L 58 L Pulse Rate [Radial] Respiratory Rate 16 18 Blood Pressure 144/83 H 157/87 H 141/84 H Blood Pressure [Right Arm] Blood Pressure Mean 103 110 Blood Pressure Mean [Right Arm] Blood Pressure Source Blood Pressure Source [Right Arm] Blood Pressure Position Blood Pressure Position [Right Arm] 02 Sat by Pulse Oximetry 100 100 100 Oxygen Delivery Method 11/15/23 20:26 Temperature 97.9 F Temperature Source Oral Pulse Rate 58 L Pulse Rate [Radial] Respiratory Rate 18 Blood Pressure 141/84 H Blood Pressure [Right Arm] Blood Pressure Mean Blood Pressure Mean [Right Arm] Blood Pressure Source Automatic Cuff Blood Pressure Source [Right Arm] Blood Pressure Position Supine Blood Pressure Position [Right Arm] 02 Sat by Pulse Oximetry Oxygen Delivery Method Room Air Lab Data Lab results reviewed: Yes I reviewed the patient's lab results. Lab Results 11/15/23 16:05: Urine Color Yellow, Urine Appearance Clear, Urine pH 7.0, Ur Specific [place] 1.025, Urine Protein Negative, Urine Glucose (UA) Negative, Urine Ketones Trace, Urine Blood 1+ A, Urine Nitrate Negative, Urine Bilirubin Negative, Urine Urobilinogen 0.2, Ur Leukocyte Esterase Negative, Urine RBC 5- 10, Urine WBC 3-5, Ur Squamous Epith Cells 10-20, Urine Bacteria 1+, Urine Mucus 2+ 11/15/23 16:10: WBC 5.9, RBC 3.99 L, Hgb 11.7 L, Hct 35.0 L, MCV 87.8, MCH 29.4, MCHC 33.5, RDW 13.5, Plt Count 195, MPV 8.5, Neut % (Auto) 66.6, Lymph % (Auto) 25.3, [place] % (Auto) 5.6, Eos % (Auto) 1.8, Baso % (Auto) 0.7, Neut # (Auto) 3.9, Lymph # (Auto) 1.5, [place] # (Auto) 0.3, Eos # (Auto) 0.1, Baso # (Auto) 0.0, Sodium 137, Potassium 3.8, Chloride 101, Carbon Dioxide 29, Anion Gap 10.8, BUN 14, Creatinine 0.70, Estimated Creat Clear 98, Estimated GFR 94, Est GFR ( Amer) 113, Glucose 90, Calcium 9.3, Total Bilirubin 0.8, AST 22, ALT 13, Alkaline Phosphatase 58, Total Protein 7.5, Albumin 4.4, Globulin 3.1, Albumin/Globulin Ratio 1.4, Serum HCG, Qual Negative, HIV 1&2 Antibody Rapid Nonreactive 11/15/23 16:10 11/15/23 16:10 Orders (Tests/Meds): ED MEDICATIONS Discontinued Medications Generic Name Dose Route Start Last Admin Trade Name Freq PRN Reason Stop Dose Admin Acetaminophen 1,000 mg 11/15/23 16:16 11/15/23 16:26 Acetaminophen 1,000mg/100ml Vial IV 11/15/23 16:17 1,000 mg ONCE ONE Administration Lactated Ringer's 1,000 mls @ 999 mls/hr 11/15/23 16:16 11/15/23 16:25 Lactated Ringer's 1000 Ml Bag IV 11/15/23 17:16 999 mls/hr .Q1H1M ONE Administration Iopamidol 75 ml 11/15/23 18:09 11/15/23 18:10 Iopamidol-370 (76%);100ml Bottle IV 11/15/23 18:10 75 ml ONCE ONE Administration Ketorolac Tromethamine 15 mg 11/15/23 16:16 11/15/23 16:25 Ketorolac 30mg/Ml Vial IV 11/15/23 16:17 15 mg ONCE ONE Administration Sodium Chloride 10 ml 11/15/23 18:09 11/15/23 18:10 Sodium Chloride 0.9% 10ml Syr (Rad Only) IV 12/15/23 18:08 10 ml NEEDED PRN Administration Maintain IV Site ORDERS Category Date Time Status CT abdomen pelvis w con Stat Cat Scan 11/15/23 16:17 Completed US transvaginal Stat Exams 11/15/23 18:23 Completed CBC w/Auto Diff [Complete Blood Count Auto Diff] Stat Lab 11/15/23 16:10 Completed CMP [Comprehensive Metabolic Panel] Stat Lab 11/15/23 16:10 Completed HCG Qualitative, Serum Stat Lab 11/15/23 16:10 Completed HIV (1&2) Antibody Rapid Stat Lab 11/15/23 16:10 Completed Hep C Ab with Reflex to RNA Stat Lab 11/15/23 16:10 Received UA [Urinalysis and Microscopic] Stat Lab 11/15/23 16:05 Completed Medical Decision Narrative: In summary patient is a 38-year-old female who presents to the emergency department for evaluation of right lower quadrant abdominal pain. Patient is hemodynamically stable upon arrival, afebrile. Physical exam is remarkable for mild right lower quadrant abdominal tenderness on palpation but no specific focal area bowel sounds are normal. Patient has no CVA tenderness to percussion. Patient denies vaginal bleeding or discharge. Differential diagnosis includes UTI versus kidney stone versus ovarian cyst versus acute appendicitis versus constipation etc. Initial workup will be conducted with hematologic labs urinalysis CT scan abdomen pelvis. Initial interventions include crystalloid bolus Toradol Tylenol. 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 Radiology also mentioned a cyst on her right kidney upon repeat evaluation patient had moderate improvement in her pain after initial intervention. Given the CT images I have not ordered a transvaginal ultrasound and the results show a septated cyst but with good flow. Given this patient is appropriate for discharge with follow-up with LOCATE TECHNICIAN for her ovarian cyst and for follow-up with her PCP for her right renal cyst <Víctor Hernandez MD - Last Filed: 11/15/23 20:48> Vital Signs: 11/15/23 16:00 11/15/23 16:31 11/15/23 17:00 Temperature 98.3 F Temperature Source Oral Pulse Rate 80 63 Pulse Rate [Radial] 66 Respiratory Rate 16 16 Blood Pressure 138/80 139/87 Blood Pressure [Right Arm] 135/83 Blood Pressure Mean 96 Blood Pressure Mean [Right Arm] 100 Blood Pressure Source Blood Pressure Source [Right Arm] Automatic Cuff Blood Pressure Position Blood Pressure Position [Right Arm] Sitting 02 Sat by Pulse Oximetry 99 99 100 Oxygen Delivery Method Room Air Room Air 11/15/23 17:30 11/15/23 18:30 11/15/23 20:00 Temperature Temperature Source Pulse Rate 60 55 L 58 L Pulse Rate [Radial] Respiratory Rate 16 18 Blood Pressure 144/83 H 157/87 H 141/84 H Blood Pressure [Right Arm] Blood Pressure Mean 103 110 Blood Pressure Mean [Right Arm] Blood Pressure Source Blood Pressure Source [Right Arm] Blood Pressure Position Blood Pressure Position [Right Arm] 02 Sat by Pulse Oximetry 100 100 100 Oxygen Delivery Method 11/15/23 20:26 Temperature 97.9 F Temperature Source Oral Pulse Rate 58 L Pulse Rate [Radial] Respiratory Rate 18 Blood Pressure 141/84 H Blood Pressure [Right Arm] Blood Pressure Mean Blood Pressure Mean [Right Arm] Blood Pressure Source Automatic Cuff Blood Pressure Source [Right Arm] Blood Pressure Position Supine Blood Pressure Position [Right Arm] 02 Sat by Pulse Oximetry Oxygen Delivery Method Room Air Lab Data Lab Results 11/15/23 16:05: Urine Color Yellow, Urine Appearance Clear, Urine pH 7.0, Ur Specific [place] 1.025, Urine Protein Negative, Urine Glucose (UA) Negative, Urine Ketones Trace, Urine Blood 1+ A, Urine Nitrate Negative, Urine Bilirubin Negative, Urine Urobilinogen 0.2, Ur Leukocyte Esterase Negative, Urine RBC 5- 10, Urine WBC 3-5, Ur Squamous Epith Cells 10-20, Urine Bacteria 1+, Urine Mucus 2+ 11/15/23 16:10: WBC 5.9, RBC 3.99 L, Hgb 11.7 L, Hct 35.0 L, MCV 87.8, MCH 29.4, MCHC 33.5, RDW 13.5, Plt Count 195, MPV 8.5, Neut % (Auto) 66.6, Lymph % (Auto) 25.3, [place] % (Auto) 5.6, Eos % (Auto) 1.8, Baso % (Auto) 0.7, Neut # (Auto) 3.9, Lymph # (Auto) 1.5, [place] # (Auto) 0.3, Eos # (Auto) 0.1, Baso # (Auto) 0.0, Sodium 137, Potassium 3.8, Chloride 101, Carbon Dioxide 29, Anion Gap 10.8, BUN 14, Creatinine 0.70, Estimated Creat Clear 98, Estimated GFR 94, Est GFR ( Amer) 113, Glucose 90, Calcium 9.3, Total Bilirubin 0.8, AST 22, ALT 13, Alkaline Phosphatase 58, Total Protein 7.5, Albumin 4.4, Globulin 3.1, Albumin/Globulin Ratio 1.4, Serum HCG, Qual Negative, HIV 1&2 Antibody Rapid Nonreactive Orders (Tests/Meds): ED MEDICATIONS Discontinued Medications Generic Name Dose Route Start Last Admin Trade Name Malou PRN Reason Stop Dose Admin Acetaminophen 1,000 mg 11/15/23 16:16 11/15/23 16:26 Acetaminophen 1,000mg/100ml Vial IV 11/15/23 16:17 1,000 mg ONCE ONE Administration Lactated Ringer's 1,000 mls @ 999 mls/hr 11/15/23 16:16 11/15/23 16:25 Lactated Ringer's 1000 Ml Bag IV 11/15/23 17:16 999 mls/hr .Q1H1M ONE Administration Iopamidol 75 ml 11/15/23 18:09 11/15/23 18:10 Iopamidol-370 (76%);100ml Bottle IV 11/15/23 18:10 75 ml ONCE ONE Administration Ketorolac Tromethamine 15 mg 11/15/23 16:16 11/15/23 16:25 Ketorolac 30mg/Ml Vial IV 11/15/23 16:17 15 mg ONCE ONE Administration Sodium Chloride 10 ml 11/15/23 18:09 11/15/23 18:10 Sodium Chloride 0.9% 10ml Syr (Rad Only) IV 12/15/23 18:08 10 ml NEEDED PRN Administration Maintain IV Site ORDERS Category Date Time Status CT abdomen pelvis w con Stat Cat Scan 11/15/23 16:17 Completed US transvaginal Stat Exams 11/15/23 18:23 Completed CBC w/Auto Diff [Complete Blood Count Auto Diff] Stat Lab 11/15/23 16:10 Completed CMP [Comprehensive Metabolic Panel] Stat Lab 11/15/23 16:10 Completed HCG Qualitative, Serum Stat Lab 11/15/23 16:10 Completed HIV (1&2) Antibody Rapid Stat Lab 11/15/23 16:10 Completed Hep C Ab with Reflex to RNA Stat Lab 11/15/23 16:10 Received UA [Urinalysis and Microscopic] Stat Lab 11/15/23 16:05 Completed Medical Decision Narrative: In summary patient is a 38-year-old female who presents to the emergency department for evaluation of right lower quadrant abdominal pain. Patient is hemodynamically stable upon arrival, afebrile. Physical exam is remarkable for mild right lower quadrant abdominal tenderness on palpation but no specific focal area bowel sounds are normal. Patient has no CVA tenderness to percussion. Patient denies vaginal bleeding or discharge. Differential diagnosis includes UTI versus kidney stone versus ovarian cyst versus acute appendicitis versus constipation etc. Initial workup will be conducted with hematologic labs urinalysis CT scan abdomen pelvis. Initial interventions include crystalloid bolus Toradol Tylenol. 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 Radiology also mentioned a cyst on her right kidney upon repeat evaluation patient had moderate improvement in her pain after initial intervention. Given the CT images I have not ordered a transvaginal ultrasound and the results show a septated cyst but with good flow. Given this patient is appropriate for discharge with follow-up with LOCATE TECHNICIAN for her ovarian cyst and for follow-up with her PCP for her right renal cyst I was consulted by the RODRIGO, and we discussed the complexity of the problems being addressed. I approved the treatment and management plan for this patient's care in the Emergency Department, thus performing a substantive portion of the medical decision making. Víctor Hernandez MD Critical Care <FREDERICK Alston - Last Filed: 11/15/23 19:59> Critical Care Time Critical Care Time: No
--- NOTE | 2023-11-15 16:17 | CT_ITS ---
PROCEDURE INFORMATION: Exam: CT Abdomen And Pelvis With Contrast Exam date and time: 11/15/2023 6:06 PM Age: 38 years old Clinical indication: Abdominal pain; Additional info: Right lower quadrant abdominal pain TECHNIQUE: Imaging protocol: Computed tomography of the abdomen and pelvis with contrast. Radiation optimization: All CT scans at this facility use at least one of these dose optimization techniques: automated exposure control; mA and/or kV adjustment per patient size (includes targeted exams where dose is matched to clinical indication); or iterative reconstruction. Contrast material: ISOVUE; Contrast volume: 75 ml; Contrast route: IV; COMPARISON: No relevant prior studies available. FINDINGS: Liver: Decreased density throughout the liver compatible with hepatic steatosis. Gallbladder and biliary ducts: Gallbladder unremarkable Pancreas: Pancreas unremarkable Spleen: The spleen is unremarkable. Adrenal glands: Adrenal glands unremarkable. Kidneys and ureters: Left kidney markedly atrophied measuring approximately 4 x 1.7 cm in maximum dimensions. Predominantly diminished in density. Lobulated predominantly cystic mass measuring 2.3 x 1.7 cm with demonstration of a septation and peripheral rim of fat originating from the upper pole of the right kidney. 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 Stomach and bowel: Moderate stool burden Appendix: No evidence of appendicitis. Intraperitoneal space: See Reproductive finding. Vasculature: Unremarkable. No abdominal aortic aneurysm. Lymph nodes: Unremarkable. No enlarged lymph nodes. Urinary bladder: Unremarkable as visualized. Reproductive: surgical clips compatible with tubal ligation. Demonstration of prominent 2.5 cm right ovarian cyst with peripheral rim of enhancement. Findings compatible with a corpus luteum cyst. Small amount of fluid demonstrated in the cul-de-sac. Prominence of the endometrium measuring 16 mm. Clinically correlate regarding patient's menstrual status.. Bones/joints: Unremarkable. No acute fracture. Soft tissues: Unremarkable. Other findings: Findings demonstrated on series 3, image number 36). IMPRESSION: 1. Demonstration of prominent 2.5 cm right ovarian cyst with peripheral rim of enhancement. Findings compatible with a corpus luteum cyst. Small amount of fluid demonstrated in the cul-de-sac. 2. Lobulated predominantly cystic mass measuring 2.3 x 1.7 cm with demonstration of a septation and peripheral rim of fat originating from the upper pole of the right kidney. 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 Consider follow-up with a renal ultrasound and magnetic resonance imaging. COMMENTS: Consistent with the [employer]'s Incidental Findings Committee white paper (J Am Sherri Radiol 2018): Any incidental renal lesion less than 1 cm or classified as too small to characterize, or any incidental cystic renal lesion characterized as simple-appearing, is likely benign. No follow-up imaging is recommended for these lesions per consensus recommendations based on imaging criteria.
[2023-11-15] MEDS: KETOROLAC 30MG/ML VIAL 15 MG IV (16:25)
[2023-11-15] MEDS: LACTATED RINGERS 1000ML 1,000 ML 999 ML IV (16:25)
[2023-11-15] MEDS: ACETAMINOPHEN 1,000MG/100ML VIAL 1000 MG IV (16:26)
[2023-11-15 16:28] LABS: Chloride 101 mmol/L (98-107)
[2023-11-15 16:29] LABS: Albumin Level 4.4 g/dl (3.5-5.0); Potassium 3.8 mmoL/L (3.5-5.1); Sodium 137 mmol/L (136-145)
[2023-11-15 16:31] LABS: Blood Urea Nitrogen 14 mg/dl (7-17); Creatinine Clearance Estimated 98 mL/min (50-200); Estimated Glomerular Filt Rate 94 ml/min (>60); GFR (African American) 113 ML/MIN (>60)
[2023-11-15 16:32] LABS: Microscopic, Urine URINE MICROSCOPIC (MICROSCOPIC)
[2023-11-15 16:32] LABS: Alanine Aminotransferase 13 U/L (12-78); Albumin/Globulin Ratio 1.4 (1.1-1.8); Alkaline Phosphatase 58 U/L (38-126); Anion Gap 10.8 mEq/L (5-15); Aspartate Amino Transferase 22 U/L (14-36); Bilirubin,Total 0.8 mg/dl (0.2-1.3); Calcium 9.3 mg/dl (8.4-10.2); Carbon Dioxide 29 mmol/L (22.0-30.0); Globulin 3.1 g/dL (1.3-3.2); Glucose 90 mg/dl (74-100); Total Protein,Serum 7.5 g/dl (6.3-8.2)
[2023-11-15 16:34] LABS: Appearance,Urine CLEAR (Clear); Bilirubin,Urine Negative (Negative); Blood, Urine 1+ (Negative); Color,Urine YELLOW (Yellow); Glucose,Urine (UA) Negative (Negative); Ketones,Urine TRACE (Negative); Leukocyte Esterase,Urine Negative (Negative); Nitrate,Urine Negative (Negative); Protein,Urine Negative (Negative); Specific Gravity, Urine 1.025 (1.005-1.030); Urobilinogen,Urine 0.2 EU/dl (0.2)
[2023-11-15 16:35] LABS: Basophils % 0.7 % (0.1-2.0); Eosinophils # 0.1 K/mm3 (0.0-0.4); Eosinophils % 1.8 % (0.1-12.0); Hemoglobin 11.7 g/dL (12.2-16.2); Lymphocytes # 1.5 K/mm3 (0.7-4.5); Lymphocytes % 25.3 % (10-50); Mean Corpuscular HGB Conc 33.5 g/dL (31.8-35.4); Mean Corpuscular Hemoglobin 29.4 pg (27.0-31.2); Mean Corpuscular Volume 87.8 fl (81-99); Mean Platelet Volume 8.5 fl (7.4-10.4); Monocytes # 0.3 K/mm3 (0.1-1.0); Monocytes % 5.6 % (1.7-9.3); Neutrophils # 3.9 K/mm3 (1.8-7.8); Neutrophils % 66.6 % (37.0-80.0); Platelet Count 195 K/mm3 (142-424); Red Blood Count 3.99 M/mm3 (4.20-5.40); Red Cell Distribution Width 13.5 % (11.5-17.5); White Blood Count 5.9 K/mm3 (4.8-10.8)
[2023-11-15 16:56] LABS: Bacteria,Urine 1+ /lpf; Mucus,Urine 2+ /lpf
[2023-11-15 17:33] LABS: HCG Qualitative, Serum Negative (Negative)
[2023-11-15] MEDS: IOPAMIDOL-370 (76%);100ML BOTTLE 75 ML IV (18:10)
[2023-11-15] MEDS: SODIUM CHLORIDE 0.9% 10ML SYR (RAD ONLY) 10 ML IV (18:10)
--- NOTE | 2023-11-15 18:23 | US_ITS ---
PROCEDURE INFORMATION: Exam: US Pelvis, Transvaginal, Non-Obstetric Exam date and time: 11/15/2023 7:11 PM Age: 38 years old Clinical indication: Pain; Other: Rlq; Additional info: Rlq abd pain, right adnexal mass TECHNIQUE: Imaging protocol: Real-time transvaginal pelvic (non-obstetric) ultrasound with image documentation. Transvaginal imaging was used for better evaluation of the endometrium, adnexa, and/or cervix. COMPARISON: CT ABDOMEN PELVIS W CON 11/15/2023 6:06 PM FINDINGS: Uterus: 9.4 x 5.6 x 6.3 cm in length, AP and transverse dimensions. Endometrial complex measuring 1.3 cm. Nabothian cyst demonstrated Right ovary/adnexa: 5.3 x 5.2 x 2.4 cm in length, transverse in AP dimensions. Demonstration of small amount of fluid surrounding the right ovary. Hypervascularity in association with the right ovary. Findings most compatible with corpus luteum cyst. Left ovary/adnexa: 2.9 x 2.2 x 2 cm in length, transverse in AP dimensions. Urinary bladder: Urinary bladder is limited. Intraperitoneal space: Demonstration of fluid in the cul-de-sac. IMPRESSION: 1. Demonstration of fluid in the cul-de-sac. 2. Hypervascularity in association with the right ovary. Findings most compatible with corpus luteum cyst.
--- NOTE | 2023-11-15 18:24 | PC.NURSE ---
DON AT BEDSIDE TO UPDATE PT
--- NOTE | 2023-11-15 18:27 | PC.NURSE ---
radiology aware of transvaginal US
[2023-11-15 19:01] LABS: HIV (1&2) Antibody Rapid NONREACTIVE (NONREACTIVE)
[2023-11-17 06:25] LABS: HCV Ab Non Reactive (Non Reactive)
== END 2023-11-15 20:32 | disposition home or self-care (01) ==
PROVIDERS: Physician Assistant; Emergency Provider Emergency Medicine; PCP Internal Medicine Adolescent Medicine
DX: N28.1 Cyst of kidney, acquired (principal); R10.31 Right lower quadrant pain
CPT/HCPCS: 74177; 76830; 80053; 81001; 84703; 85025; 86803; 87389; 99284; J0131; J1885; J7120; Q9967

== ENCOUNTER 2024-01-16 10:07 | Outpatient (CLI) | payer OTHER, SELFPAY ==
--- NOTE | 2024-01-16 10:13 | XR_ITS ---
FINAL REPORT CLINICAL HISTORY: left shoulder pain, decreased ROM x 4 mo COMPARISON: None FINDINGS: LEFT SHOULDER Three views demonstrate no acute fracture or dislocation. There is mild elevation of the distal clavicle worrisome for mild AC separation. The visualized bony structures are well aligned. No soft tissue abnormality is seen. IMPRESSION: Possible mild AC separation. Reviewed, Interpreted and Dictated by Diego Meadows III, MD Transcribed by Yesi Hughes Authenticated and [facility]
[2024-01-16 10:56] LABS: Basophils % 0.6 % (0.1-2.0); Eosinophils # 0.1 K/mm3 (0.0-0.4); Eosinophils % 1.3 % (0.1-12.0); Hematocrit 35.7 % (37.0-47.0); Hemoglobin 12.2 g/dL (12.2-16.2); Lymphocytes # 1.2 K/mm3 (0.7-4.5); Lymphocytes % 21.8 % (10-50); Mean Corpuscular HGB Conc 34.1 g/dL (31.8-35.4); Mean Corpuscular Hemoglobin 29.6 pg (27.0-31.2); Mean Corpuscular Volume 86.8 fl (81-99); Mean Platelet Volume 8.4 fl (7.4-10.4); Monocytes # 0.3 K/mm3 (0.1-1.0); Monocytes % 5.5 % (1.7-9.3); Neutrophils # 3.7 K/mm3 (1.8-7.8); Neutrophils % 70.9 % (37.0-80.0); Platelet Count 188 K/mm3 (142-424); Red Blood Count 4.11 M/mm3 (4.20-5.40); Red Cell Distribution Width 13.6 % (11.5-17.5); White Blood Count 5.3 K/mm3 (4.8-10.8)
[2024-01-16 11:25] LABS: Alanine Aminotransferase 15 U/L (12-78); Albumin Level 4.3 g/dl (3.5-5.0); Albumin/Globulin Ratio 1.5 (1.1-1.8); Alkaline Phosphatase 51 U/L (38-126); Aspartate Amino Transferase 21 U/L (14-36); Bilirubin,Total 0.8 mg/dl (0.2-1.3); Blood Urea Nitrogen 20 mg/dl (7-17); Carbon Dioxide 26 mmol/L (22.0-30.0); Chloride 106 mmol/L (98-107); Chol/HDL Ratio 1.9 (1-3.5); Cholesterol 147 mg/dl (140-200); Estimated Glomerular Filt Rate 80 ml/min (>60); GFR (African American) 97 ML/MIN (>60); Globulin 2.8 g/dL (1.3-3.2); Glucose 87 mg/dl (74-100); HDL Cholesterol 76 mg/dl (40-60); Sodium 140 mmol/L (136-145); Total Protein,Serum 7.1 g/dl (6.3-8.2); Triglycerides 63 mg/dl (30-150); VLDL Cholesterol 13 mg/dL (0-40)
[2024-01-16 11:36] LABS: Direct LDL Cholesterol 55.47 mg/dL (100-129)
[2024-01-16 11:56] LABS: Thyroid Stimulating Hormone 9.68 uIU/mL (0.465-4.68)
[2024-01-16 12:14] LABS: Vitamin B12 323 pg/mL (239-931)
[2024-01-16 13:32] LABS: 25-OH Vitamin D, Total 31.3 ng/mL (30-100)
[2024-01-17 12:13] LABS: Antinuclear Antibodies (ANA) Negative (Negative)
== END 2024-01-16 23:59 | disposition home or self-care (01) ==
LOC: RAD 10:08
PROVIDERS: PCP Nurse Practitioner Family; Visit Provider Nurse Practitioner Family
DX: M25.512 Pain in left shoulder (principal); M25.612 Stiffness of left shoulder, not elsewhere classified; N26.1 Atrophy of kidney (terminal); N28.1 Cyst of kidney, acquired; Z13.220 Encounter for screening for lipoid disorders; Z13.0 Encounter for screening for diseases of the blood and blood-forming organs and certain disorders involving the immune mechanism; Z13.29 Encounter for screening for other suspected endocrine disorder
CPT/HCPCS: 36415; 73030; 80050; 80053; 80061; 82306; 82607; 84443; 85025; 86038

== ENCOUNTER 2024-01-22 16:12 | Outpatient (CLI) | payer OTHER, SELFPAY ==
--- NOTE | 2024-01-22 16:16 | US_ITS ---
FINAL REPORT CLINICAL HISTORY: Right renal mass seen on CT COMPARISON: CT abdomen and pelvis dated 11/15/2023 FINDINGS: RENAL ULTRASOUND Ultrasound images of the kidneys were obtained. The right kidney measures 11.2 cm in length. No renal masses identified. It is normal echogenicity. There is no hydronephrosis. The left kidney was not well-visualized and not measured. IMPRESSION: No right renal mass identified. Renal mass protocol CT may be beneficial. Reviewed, Interpreted and Dictated by Diego Meadows III, MD Transcribed by Jacque Grossman Authenticated and [facility]
== END 2024-01-22 23:59 | disposition home or self-care (01) ==
LOC: RAD 16:12
PROVIDERS: PCP Nurse Practitioner Family; Visit Provider Nurse Practitioner Family
DX: N28.89 Other specified disorders of kidney and ureter (principal); N26.1 Atrophy of kidney (terminal); N28.1 Cyst of kidney, acquired
CPT/HCPCS: 76770

== ENCOUNTER 2024-02-02 17:00 | Outpatient (RCR) | payer OTHER, SELFPAY ==
--- NOTE | 2024-01-22 17:54 | HMH.PTOPEV ---
PT Outpatient Evaluation Rehab PT Outpatient Evaluation Start: 01/22/24 17:14 Freq: Status: Active Protocol: Document 01/22/24 17:14 REMINGTON (Rec: 01/22/24 17:54 ENARIEL [id number]) E-signed By Jose Guadalupe Anton, PT Outpatient Therapy Subjective History Subjective History Pt is a 38 yof who is referred to [facility] outpatient PT with complaints of L shoulder pain. The patient reports that this has been going on for about 4 months. She cannot remember a particular episode that caused this pain to begin. She reports that she had an x-ray done and they called her today with the results saying that there is a mild A-C joint separation. The pt reports that she has been wearing a sling when she leaves the house but it does not provide her much relief. 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 New diagnosis of cancer in past 12 No months? Chief Complaint Pain,Stiff Symptom Type Ache Symptoms Relieved By Nothing Symptoms Aggravated By Physical Activity,Lifting Prior Functional Limitations None Current Functional Limitations Reaching,Housework,Desk Work/ Reading,Sleeping,Recreation Activity Symptom Description Constant but Variable Level of pain today (0-10) 5 Pain scale - at its best (0-10) 10 Pain scale - at its worst (0-10) 3 Shoulder/Elbow Eval Shoulder Objective Measurements Palpation Tenderness tenderness shoulder exam standard left Shoulder Palpation Findings Tenderness Shoulder Palpation Overall Comment 1/4 to L shoulder near AC Joint Posture Shoulder Posture Sitting Position (L) Rounded,(R) Rounded,(L) Elevated Scapula Posture Sitting Position (L) Protracted,(R) Protracted Flexibilty Deficits Latissmus Dorsi Muscle Length (R) WFL,(L) WFL Pectoralis Minor Muscle Length (R) WFL,(L) WFL Pectoralis Major Muscle Length (R) WFL,(L) WFL Shoulder External Rotators Muscle Length (R) WFL,(L) WFL Shoulder Internal Rotators Muscle Length (R) WFL,(L) WFL Shoulder ROM Left Shoulder ROM Limitations Pain Shoulder Abduction Active Range of 125 Motion (degrees) Shoulder Flexion Active Range of Motion 122 (degrees) Query Text: Shoulder External Rotation Active Range 50 of Motion (degrees) Shoulder Internal Rotation Active Range 44 of Motion (degrees) full ROM shoulder exam standard right Shoulder MMT Shoulder Abduction Strength Grade 2+ Poor+ Shoulder Extension Strength Grade 2+ Poor+ Shoulder Flexion Strength Grade 2+ Poor+ Shoulder Horizontal Abduction Strength 2+ Poor+ Grade Shoulder External Rotation Strength 2+ Poor+ Grade Shoulder Internal Rotation Strength 2+ Poor+ Grade Shoulder Special Tests Shoulder [place] Impingement Positive Left Test Shoulder Neer Impingement Test Positive Left Shoulder [place] Test Positive Left Elbow Objective Measurements QuickDASH Activities Please rate your ability to do the following activities in the last week by selecting the number below the appropriate response. 1. Open a tight or new jar. No difficulty 2. Do heavy nurse licensed practical (e.g., wash Moderate difficulty roberts, floors). 3. Carry a shopping bag or briefcase. Moderate difficulty 4. Wash your back. Mild difficulty 5. Use a knife to cut food. Mild difficulty 6. Recreational activities in which you No difficulty take some force or impact through your arm, shoulder, or hand (e.g., golf, hammering, tennis, etc.). 7. During the past week, to what extent Not at all has your arm, shoulder or hand problem interfered with your normal social activities with family, friends, neighbors or groups? 8. During the past week, were you Moderately limited limited in your work or other regular daily activites as a result of your arm, shoulder or hand problem? 9. Arm, shoulder or hand pain. Moderate 10. Tingling (pins and needles) in your Mild arm, shoulder or hand. 11. During the past week, how much Moderate difficulty difficulty have you had sleeping because of the pain in your arm, shoulder or hand? Quick DASH 24 Outpatient Therapy Assessment Impairments Problems/Impairmments Palpation Tenderness,Impaired Range of Motion,Impaired Lifting,Impaired Household Care,Subjective C/O Pain Prognosis Rehab Potential Good Comment Pt demonstrates impairments in shoulder ROM, strength of her L shoulder and pain into her L shoulder. The patient would benefit from skilled PT to address these impairments and to better promote a return to her PLOF. Clinical Impression Consistent with Diagnosis Yes Short Term Goals Number of Weeks 4 Decreased Palpation Tenderness Yes: 1/4 to L shoulder Increase Range of Motion Yes: Flexion and Abduction to 160 Increase Strength Yes: /5 to L Shoulder Restore Ability to Lift Objects to Yes: 5# with no pain Shoulder Level Improve Quick Dash Score Yes: to 15 Decrease Subjective C/O Pain Yes: 6/10 at worst Patient to be Ind w/ HEP Yes Chemistry Laboratory Technician Goals Number of Weeks 8 Decreased Palpation Tenderness Yes: 0/4 to L shoulder Increase Range of Motion Yes: ER to 85 Increase Strength Yes: 5/5 to L Shoulder Restore Ability to Lift Objects Overhead Yes: 5# with no pain Improve Quick Dash Score Yes: to 8 Decrease Subjective C/O Pain Yes: 3/10 at worst Patient to be Ind w/ Advanced HEP Yes Outpatient Therapy Plan of Care Treatment Plan May Include Therapeutic Exercise Including Home Yes Exercise Program Manual Therapy Techniques Yes Neuromuscular Re-education Yes Therapeutic Activities to Return to Yes Previous Functional/Work Level ADL/Self Care Education Yes Dry Needling Yes Thermal Modalities Yes Electrical Stimulation Yes Manual Lymphatic Drainage Yes Eval/Re-Eval Yes Frequency Times per week 2 Duration Number of Weeks 8 Addendums This patient is a candidate for social No or vocational rehab? Patient/Guardian verbally acknowledges Yes understanding of treatment program and consents to further treatment? Patient/Guardian verbally acknowledges Yes understanding of diagnosis, prognosis and goals for treatment? Eval Complexity PT Charges 29603 - Moderate Complexity PHYSICIAN CERTIFICATION: I certify the specified therapy services for aDja Cruz are required, authorized, and reviewed every 30 days.
== END 2024-02-02 23:59 | disposition home or self-care (01) ==
LOC: PT 17:00
PROVIDERS: Visit Provider Nurse Practitioner Family
DX: M25.512 Pain in left shoulder (principal); M25.612 Stiffness of left shoulder, not elsewhere classified
CPT/HCPCS: 97010; 97110; 97140; 97163; 97530

== ENCOUNTER 2024-02-05 07:20 | Outpatient (CLI) | payer OTHER, SELFPAY ==
--- NOTE | 2024-02-05 07:27 | MR_ITS ---
FINAL REPORT CLINICAL HISTORY: Right kidney mass cyst on kidney and ovary per patient COMPARISON: none FINDINGS: Multiplanar MR imaging was obtained of the pelvis with and without contrast. The uterus is unremarkable. There is a small area of blooming artifact along the inferior uterine surface related to his surgical clip within the pelvic cul-de-sac. There has been interval resolution of the cystic mass on the right ovary compatible with benign functional cyst. There is a cystic lesion of the left ovary measuring up to 15 mm. There is some enhancement within the wall of the cyst which is nonspecific. There is no pelvic adenopathy or free fluid. IMPRESSION: Interval resolution right ovarian cyst, considered benign. 15 mm complex left ovarian cyst, favor benign functional cyst. However, recommend pelvic ultrasound or MR follow-up for continued surveillance in 3 months. Reviewed, Interpreted and Dictated by Nnamdi Hubbard MD Transcribed by Yesi Hughes Authenticated and [facility]
--- NOTE | 2024-02-05 07:27 | MR_ITS ---
FINAL REPORT CLINICAL HISTORY: Right kidney cystic mass per patient cyst on kidney and ovary COMPARISON: 11/15/2023 CT abdomen and pelvis FINDINGS: Multiplanar MR imaging of the abdomen was performed without and with contrast. There is a cystic mass of the upper pole of the right kidney measuring 27 x 15 mm. On delayed imaging, this partially fills with excreted contrast. 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 No enhancing right renal mass is seen. There is mild right renal scarring. Severely atrophic left kidney is probably congenital. The remaining solid organs are unremarkable. The gallbladder is negative. There is no adenopathy or ascites. 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 No further follow-up recommended. Compensatory hypertrophy of the right kidney with severely atrophic left kidney. Reviewed, Interpreted and Dictated by Nnamdi Hubbard MD Transcribed by Yesi Hughes Authenticated and [facility]
[2024-02-05] MEDS: SODIUM CHLORIDE 0.9% 10ML SYR (RAD ONLY) 10 ML IV (09:06)
[2024-02-05] MEDS: GADOTERIDOL INJ 20ML SYRINGE 13 ML IV (09:06)
[2024-02-05] MEDS: 0.9 % SODIUM CHLORIDE 50 ML VIAL IV (09:06)
== END 2024-02-05 23:59 | disposition home or self-care (01) ==
LOC: RAD 07:21
PROVIDERS: PCP Nurse Practitioner Family; Visit Provider Nurse Practitioner Family
DX: N28.89 Other specified disorders of kidney and ureter (principal); N28.1 Cyst of kidney, acquired
CPT/HCPCS: 72197; 74183; A9576

== ENCOUNTER 2024-03-04 17:11 | Outpatient (CLI) | payer OTHER, SELFPAY ==
[2024-03-04 15:06] LABS: Microscopic, Urine URINE MICROSCOPIC (MICROSCOPIC)
[2024-03-04 15:25] LABS: Appearance,Urine CLEAR (Clear); Bilirubin,Urine Negative (Negative); Blood, Urine TRACE-I (Negative); Color,Urine YELLOW (Yellow); Glucose,Urine (UA) Negative (Negative); Ketones,Urine Negative (Negative); Leukocyte Esterase,Urine Negative (Negative); Nitrate,Urine Negative (Negative); PH,Urine 5.5 (5.0-8.5); Protein,Urine Negative (Negative); Specific Gravity, Urine 1.015 (1.005-1.030); Urobilinogen,Urine 0.2 EU/dl (0.2)
[2024-03-04 16:21] LABS: Bacteria,Urine Trace /lpf; RBC,Urine Occasional #/hpf (0-3); Squamous Epithelial Cell,Urine Occasional #/hpf (0-5)
== END 2024-03-04 23:59 | disposition home or self-care (01) ==
LOC: LAB.DROPOF 17:11
PROVIDERS: PCP Urology; Visit Provider Urology
DX: R31.9 Hematuria, unspecified (principal)
CPT/HCPCS: 81001

== ENCOUNTER 2024-03-30 18:01 | Outpatient (CLI) | payer OTHER, SELFPAY ==
[2024-03-30 20:58] LABS: Human Rhinovirus Not Detected (NotDetected); Influenza A, PCR Not Detected (NotDetected); Influenza B, PCR Not Detected (NotDetected); Respiratory Syncytial Virus Not Detected (NotDetected)
[2024-03-30 23:33] LABS: Coronavirus 19, PCR Detected (NotDetected)
== END 2024-03-30 23:59 | disposition home or self-care (01) ==
LOC: LAB.DROPOF 03-31 04:14
PROVIDERS: PCP Nurse Practitioner; Visit Provider Nurse Practitioner
DX: B34.9 Viral infection, unspecified (principal)
CPT/HCPCS: 87631

== ENCOUNTER 2024-08-31 01:28 | Emergency (ER) | payer SELFPAY ==
[2024-08-31 02:14] VITALS: BP 172/91; PULSE 77; RESP 18; TEMP 37.2; O2SAT 100; BMI 21.1
--- NOTE | 2024-08-31 02:21 | XR_ITS ---
PROCEDURE INFORMATION: Exam: XR Chest Exam date and time: 08/31/2024 2:21 AM Age: 39 years old Clinical indication: Pain; Left-sided; Additional info: Fall TECHNIQUE: Imaging protocol: Radiologic exam of the chest. Views: 2 views. COMPARISON: CR XR CHEST 2V 02/09/2022 8:48 PM FINDINGS: Lungs: Unremarkable. No consolidation. Pleural spaces: Unremarkable. No pleural effusion. No pneumothorax. Heart/Mediastinum: Unremarkable. No cardiomegaly. Bones/joints: Unremarkable. IMPRESSION: No acute findings.
--- NOTE | 2024-08-31 02:21 | PC.NURSE ---
Pt asked if chance of , states no way
--- OUTSIDE RECORDS SUMMARY | 2024-08-31 02:24 | XMS_ITS | Clinical Summary ---
Author Organization Healthcare Address [address] [id number] Care Team Providers Care Machine Compositor Name Role Phone Unavailable Primary Care Provider Unavailabl e Social History Tobacco Use Types Packs/Day Years Used Date Smoking Tobacco: Never Assessed Comments Unknown Sex and Gender Information Value Date Recorded Sex Assigned at Not on file Legal Sex Female 11:48 AM EST Gender Identity Not on file Sexual Orientation Not on file Plan of Treatment Health Maintenance Due Date Last Done Comments [facility]-Depression Screening 1985 [facility]-HIV Screening 1985 [facility]-Hepatitis C Screening 1985 [facility]-/Child/Adol SDOH Screenings 1985 [facility]-Varicella Vaccines (1 of 2 - 13+ 2-dose series) 1998 HPV Vaccines (1 - 3-dose series) 2000 [facility]- SDOH Screenings 05/29/2003 [facility]-Adult SDOH Screenings 05/29/2003 [facility]-DTaP,Tdap,and Td Vaccine s (1 - Tdap) 2004 [facility]-Hepatitis B Vaccines (1 of 3 - 19+ 3-dose series) 2004 [facility]-Pap Smear 2006 [facility]-Cervical Cancer Screening 05/29/2015 [facility]-HPV/Cotest 05/29/2015 [id number] Vaccine (1 - 20 24-25 season) 2023 [facility]-Influenza Vaccine (#1) 2024 [facility]-Zoster Vaccines (1 of 2) 05/29/2035 [facility]-HIB Vaccines Aged Out No longer e ligible based on patient's age to complete this topic [facility]-Hepatitis A Vaccines Aged Out No longer eligible based on patient's age to complete this topic [facility]-IPV Vaccines Aged Out No longer e ligible based on patient's age to complete this topic [facility]-Pneumococcal Vaccine: Pediatrics (0 to 5 Years) and At-Risk Patients (6 to 49 Years) Aged Out No long er eligible based on patient's age to complete this topic [facility]-Rotavirus Vaccines Aged Out No lo nger eligible based on patient's age to complete this topic
--- NOTE | 2024-08-31 03:17 | ED_ITS ---
Discharge Plan Disposition Patient Disposition: Home, Self-Care Condition: Good Prescriptions Prescriptions: New methocarbamol 500 mg tablet 500 mg PO Q6H PRN (Reason: muscle spasm) Qty: 30 0RF lidocaine 5 % adhesive patch,medicated See Rx Instructions .ROUTE .COMPLEX Qty: 15 0RF Rx Instructions: Apply to most painful area. Leave on for 12 hours, remove and leave off for 12 hours before using a new patch oxycodone 5 mg tablet 5 mg PO Q8H PRN (Reason: pain (scale score 7-10)) Qty: 6 0RF No Action azithromycin 1 % drops 1 drp ophthalmic (eye) DIRECTED 7 Days Qty: 2.5 0RF Rx Instructions: one drop every 12 hours for two days then one drop daily for 5 days Referrals Follow up/Referrals: Provider,Referral, MD [Primary Care Provider, Medical] - See instructions Activity Restrictions/Add. Instructions Additional Instructions/Restrictions: You were evaluated in the ER and I believe to be appropriate for discharge at this time. Take Tylenol and ibuprofen if needed for pain, do not exceed the recommended dose on the bottle. Drink water and eat a small snack each time you take these medications to avoid side effects. You have been prescribed oxycodone which is a narcotic for severe, breakthrough pain. Only take this medication if you have taken Tylenol and ibuprofen and are still having pain 7 out of 10 or worse. This medication can be addictive, only take it as directed. Do not drive or operate machinery while taking this medication as it can cloud your judgment and make you sleepy. Do not take this medication with alcohol or other controlled substances. You have also been prescribed methocarbamol which is a mild muscle relaxer, do not drive or operate machinery after this taking this medication because it can make you sleepy. Use the provided lidocaine patches as directed. Use the provided incentive spirometer breathing tool once every hour. Hold a pillow against your side or braced your arm against your side when you have to sneeze or cough. Make an appointment with your primary care doctor for reevaluation in 2 to 3 days. Return to the ER with any new, worsening, or otherwise concerning symptoms. Clinical Impressions Clinical Impression: Closed fracture of rib of left side Print Language Print Language: Eritrean Discharge ED Provider: Rosey Mcallister Adult [facility] General Chief complaint: Fall Stated complaint: Rib pain, fell on table Time Seen by Provider: 08/31/24 02:57 Mode of Arrival: Ambulatory Source of Information: Patient Description of Symptoms (Recalled from ER Triage Doc. by RN): pt presents for eval of injury to left rib cage that occurred while standing on end table at home, falling and striking left side on table. Pt reports painful inspiration. Pt denies hitting head. History of Present Illness HPI narrative: 39-year-old female presents to the ER complaining of injury to left rib cage. Patient states around 1 AM she was standing on an end table trying to hang curtains when she fell and struck her left side on the end table. She denies hitting her head or losing consciousness, she takes no blood thinners. She states she has pain with deep inspiration and points to a bruised area on her left lateral rib cage when indicating the maximum area of pain. She has no shortness of breath or other chest pain, no numbness, tingling, or weakness, no abdominal pain. She denies any other complaints or concerns. No other injuries. Related Data Previous Rx's ?Medication ?Instructions ?Recorded azithromycin 1 % eye drops 1 drp ophthalmic (eye) D IRECTED 08/26/24 7 days #2.5 mL lidocaine 5 % topical patch See Rx Instructions topica l 08/31/24 .COMPLEX #15 ea methocarbamol 500 mg tablet 500 mg PO Q6H PRN muscle s pasm #30 08/31/24 tabs oxycodone 5 mg tablet 5 mg PO Q8H PRN pain (scale score 08/31/24 7-10) #6 tabs Allergies Allergy/AdvReac Type Severity Reaction Status Date / Time Sulfa (Sulfonamide Allergy Intermediate I-RASH Verified 08/26/24 10:42 Antibiotics) [facility] Disclaimer: The information contained in this section may have been updated after the patient was seen, as this information can be updated by other users. Medical History (Updated 08/31/24 @ 03:09 by Rosey Mcallister MD) Conjunctivitis Viral syndrome Hypertension Surgical History Hx of tubal ligation Family History (Updated 08/26/24 @ 10:43 by Dulce Lira MA) Family/Other No significant family history Social History Smoking Status: Never smoker alcohol intake: never substance use type: denies use current occupational status: employed Travel in the last 8 weeks?: None Have you lived/traveled outside [place] in past 30 days?: No Contact w/someone who lives/traveled outside US past 30 days?: No Exposure to someone with infectious disease in past 14 days?: No Do you have a fever (greater than 100.4 F or 38 C)?: No Have you tested positive for COVID-19?: No Exposed to someone with COVID-19 in past 14 days?: No Do you have a sore throat?: No Do you have a cough?: No Do you have any weakness?: No Do you have any diarrhea?: No Are you experiencing any unusual bleeding?: No Do you have any muscle aches/pain?: No Do you have any abdominal pain?: No Are you experiencing loss of taste or smell?: No Other Medical History Have you received the Flu Vaccine for this season: No Have you received the Pneumonia Vaccine: No ROS Obtained: Yes Systems reviewed as appropriate & no additional complaints except as documented Per HPI Physical Exam General General appearance: alert and in no apparent distress Head Head exam: atraumatic and normocephalic Eye Eye exam: Present PERRL and EOMI ENT ENT exam: Present mucous membranes moist Neck Neck exam: Present normal inspection and full ROM Chest Chest inspection: Present symmetric chest wall rise and tenderness (Left inferior lateral chest wall over the area of approximately rib 10 has focal tenderness with no crepitus or deformity, there is overlying bruising but no hematoma) Respiratory Respiratory exam: Present normal lung sounds bilaterally and other (Good air movement throughout); Absent respiratory distress, wheezes or stridor Cardiovascular Cardiovascular exam: Present regular rate and normal rhythm Abdominal Exam Abdominal exam: Present soft; Absent distention, tenderness, guarding or rebound Extremities Exam Extremities exam: Present full ROM Neurological Exam Neurological exam: Present alert and oriented X3; Absent motor sensory deficit Psychiatric Psychiatric exam: Present normal affect and normal mood Skin Skin exam: Present warm and dry Medical Decision Making Medical Records Medical records reviewed: Yes I reviewed the patient's medical records. Screening: Per USPSTF and CDC recommendations, given the prevalence of disease in our region, it is our hospital?s policy to screen for HIV and viral Hepatitis for all patients aged 18 and over and those with ongoing risk factors. Da Inquiry Pt receiving controlled substance: Yes Da was queried for this patient: No Reason not queried -: Emergent pt cond-no time (Newly identified rib fracture. PDMP reviewed and negative) Risks and benefits of using a controlled substance: were discussed with pt by me Vital Signs: 08/31/24 02:14 08/31/24 03:29 Temperature 98.9 F 98 F Temperature Source Oral Pulse Rate 72 Pulse Rate [Radial] 77 Respiratory Rate 18 15 Blood Pressure 120/72 Blood Pressure [Right Arm] 172/91 H Blood Pressure Mean [Right Arm] 118 Blood Pressure Position [Right Arm] Sitting 02 Sat by Pulse Oximetry 100 Oxygen Delivery Method Room Air Room Air Orders (Tests/Meds): ED MEDICATIONS Discontinued Medications Generic Name Dose Route Start Last Admin Trade Name Freq PRN Reason Stop Dose Admin Acetaminophen 1,000 mg 08/31/24 03:05 08/31/24 03:18 Acetaminophen 500mg Tab PO 08/31/24 03:06 1,000 mg ONCE ONE Administration Ibuprofen 800 mg 08/31/24 03:05 08/31/24 03:18 Ibuprofen 800 Mg Tablet PO 08/31/24 03:06 800 mg ONCE ONE Administration Lidocaine 1 each 08/31/24 03:05 08/31/24 03:18 Lidocaine 5% Transdermal Patch TD 08/31/24 03:06 1 each ONCE ONE Administration Methocarbamol 1,000 mg 08/31/24 03:06 08/31/24 03:14 Methocarbamol 500mg Tablet PO 08/31/24 03:07 Not Given ONCE ONE Methocarbamol 500 mg 08/31/24 03:06 08/31/24 03:18 Methocarbamol 500mg Tablet PO 08/31/24 03:07 500 mg ONCE ONE Administration Oxycodone HCl 5 mg 08/31/24 03:13 08/31/24 03:18 Oxycodone 5mg Immediate Release Tablet PO 08/31/24 03:14 5 mg ONCE ONE Administration ORDERS Category Date Time Status Chest XR 2 view (NOT portable) [XR chest 2V] Stat Exams 08/31/24 02:21 Completed Medical Decision Narrative: In summary, this 39-year-old female presents to the emergency department today with left-sided rib pain after striking her ribs on an end table. On initial evaluation patient is hemodynamically stable, afebrile, tenderness to palpation over the left inferior lateral chest wall with area of overlying bruising, no crepitus or deformity, patient normal cardiopulmonary exam and the remainder of exam is otherwise reassuring. Differential diagnosis includes but is not limited to rib fracture, I considered pneumothorax or hemothorax but have very low suspicion for these clinically, considered other musculoskeletal injury as well. X-ray imaging was ordered. Tylenol, ibuprofen, methocarbamol, lidocaine patch were initially ordered for symptomatic treatment. On my personal interpretation of the chest x-ray I appreciate a fracture of rib 10 which correlates clinically. There is no hemothorax or pneumothorax. See radiology read for final interpretation. Patient has a benign abdominal exam and vital so I do not suspect there is underlying intra-abdominal injury. Due to the presence of fracture, incentive spirometer was provided to the patient, she was able to pull 1500 on this indicating good inspiratory capacity. She was provided a dose of oxycodone in the ER. I prescribed methocarbamol, lidocaine patches, and a small amount of oxycodone for outpatient symptomatic management. Patient was given instructions on symptomatic monitoring and management including the cautious use of oxycodone. I spent extensive time counseling and educating her on the use of this since it is a controlled substance including the potential for addiction, other potential side effects, and to not drive or operate machinery while taking it or to mix it with other substances. I also gave her similar recommendations for the methocarbamol since it can be mildly sedating. The patient was instructed to only take the oxycodone if needed for severe or breakthrough pain. She was instructed on how to brace her ribs for coughing and sneezing, routine use of the incentive spirometer. She was also given instructions for follow-up with her primary care doctor as well as strict return precautions for the ER. She indicated understanding and the patient was discharged in stable condition. Patient was discharged prior to radiology read. When the read resulted they did not comment on rib fracture, I called virtual radiology and spoke with the reading radiologist Dr. Harrington because I thought there was a left lateral rib fracture at rib 10. We reviewed the image together and he agrees there is in fact a rib fracture of left rib #10. I appreciate his discussion of this finding. No change in management. Critical Care Critical Care Time Critical Care Time: No
[2024-08-31] MEDS: LIDOCAINE 5% TRANSDERMAL PATCH 1 EACH TD (03:18)
[2024-08-31] MEDS: ACETAMINOPHEN 500MG TAB 1000 MG PO (03:18)
[2024-08-31] MEDS: METHOCARBAMOL 500MG TABLET 500 MG PO (03:18)
[2024-08-31] MEDS: IBUPROFEN 800 MG TABLET PO (03:18)
[2024-08-31] MEDS: OXYCODONE 5MG IMMEDIATE RELEASE TABLET 5 MG PO (03:18)
[2024-08-31 03:29] VITALS: BP 120/72; PULSE 72; RESP 15; TEMP 36.6; O2SAT 100
== END 2024-08-31 03:30 | disposition home or self-care (01) ==
PROVIDERS: Emergency Provider Emergency Medicine
DX: R07.1 Chest pain on breathing (principal); S22.32XA Fracture of one rib, left side, initial encounter for closed fracture; W01.190A Fall on same level from slipping, tripping and stumbling with subsequent striking against furniture, initial encounter
CPT/HCPCS: 71046; 99283